=== PATIENT | male | born 1960 | race Caucasian/White ===

== ENCOUNTER 2019-09-10 19:12 | Inpatient (IN) | payer BC ==
[2019-09-10] MEDS ORDERED: ONDANSETRON 4 MG/2 ML VIAL IVP STA (19:48)
[2019-09-10] MEDS ORDERED: SODIUM CHLORIDE 0.9% 1,000 ML IV ONE (19:48)
[2019-09-10] MEDS ORDERED: HYDROmorphone 1 MG/ML 1 ML SYRINGE IVP STA (19:48)
[2019-09-10 20:40] LABS: Basophils % (A) 0 %; Eosinophils # (A) 0.1 k/uL (0-0.7); Eosinophils % (A) 1 %; HCT 46.7 % (39.0-53.0); HGB 16.3 gm/dL (13.0-17.5); Lymphocytes # (A) 0.8 k/uL (1.0-4.8); Lymphocytes % (A) 6 %; MCH 29.4 pg (25.0-35.0); MCHC 34.9 g/dL (31.0-37.0); MCV 84.1 fL (80.0-100.0); Mean Platelet Volume 7.5; Monocytes # (A) 0.7 k/uL (0-1.0); Monocytes % (A) 5 %; Neutrophils # (A) 11.9 k/uL (1.3-7.7); Neutrophils % (A) 87 %; Platelet Count 278 k/uL (150-450); RBC 5.56 m/uL (4.30-5.90); RDW 12.9 % (11.5-15.5); WBC 13.6 k/uL (3.8-10.6)
[2019-09-10 20:49] LABS: ALT 24 U/L (4-49); AST 35 U/L (17-59); African American GFR (CKD) >90 (>60 ml/min/1.73 sqM); Albumin 4.6 g/dL (3.5-5.0); Alkaline Phosphatase 83 U/L (38-126); Amylase 37 U/L (30-110); Anion Gap 10 mmol/L; Blood Urea Nitrogen 21 mg/dL (9-20); Calcium 10.1 mg/dL (8.4-10.2); Carbon Dioxide 23 mmol/L (22-30); Chloride 104 mmol/L (98-107); Glucose 104 mg/dL (74-99); Non-African American GFR(CKD) >90 (>60 ml/min/1.73 sqM); Potassium 4.2 mmol/L (3.5-5.1); Sodium 137 mmol/L (137-145); Total Bilirubin 0.9 mg/dL (0.2-1.3); Total Protein 7.4 g/dL (6.3-8.2)
--- NOTE | 2019-09-10 20:51 | ED ---
Abdominal Pain HPI - General Chief Complaint: Abdominal Pain Stated Complaint: Abd pain Time Seen by Provider: 09/10/19 19:28 Source: patient Mode of arrival: ambulatory Limitations: no limitations - History of Present Illness Initial Comments: 59-year-old male patient presents to the emergency department today for evaluation of abdominal pain and vomiting. Patient states that 2 days ago he started with some right-sided abdominal pain. Patient states his pain gradually worsened and started to encompasses all abdomen. Patient states that he is now unable to tolerate any food or fluids. States whenever he eats or drinks he had a vomiting episode. Patient states that his pain is still mostly in the right lower quadrant. He denies any radiation of the pain through to his back. Denies any hematuria, dysuria, urinary frequency, urinary urgency. Denies any constipation or diarrhea. States he did have a normal bowel movement today. Denies fevers or chills. States he has had hernia repair to the abdomen but no other surgeries. Does have a history of coronary artery disease with 6 stents. States that he feels that his breathing is becoming more shallow but denies any significant shortness of breath. Patient denies any recent rash, chest pain, numbness, tingling, dizziness, weakness, headache, visual changes, or any other complaints. - Related Data Home Medications Medication Instructions Recorded Confirmed Aspirin EC [Ecotrin Low Dose] 162 mg PO DAILY 09/10/19 09/10/19 Clopidogrel [Plavix] 75 mg PO DAILY 09/10/19 09/10/19 Levothyroxine Sodium [Synthroid] 50 mcg PO DAILY 09/10/19 09/10/19 Lisinopril [Zestril] 5 mg PO DAILY 09/10/19 09/10/19 Magnesium Oxide [Mag-Ox] 250 mg PO DAILY 09/10/19 09/10/19 Metoprolol Succinate [Toprol XL] 12.5 mg PO DAILY 09/10/19 09/10/19 Omeprazole 20 mg PO DAILY 09/10/19 09/10/19 Rosuvastatin Calcium [Crestor] 40 mg PO DAILY 09/10/19 09/10/19 Ubidecarenone [Co Q-10] 200 mg PO DAILY 09/10/19 09/10/19 Allergies Allergy/AdvReac Type Severity Reaction Status Date / Time No Known Allergies Allergy Verified 09/10/19 22:54 Review of Systems ROS Statement: Those systems with pertinent positive or pertinent negative responses have been documented in the HPI. ROS Other: All systems not noted in ROS Statement are negative. Past Medical History Past Medical History: Cancer, Myocardial Infarction ([place]) History of Any Multi-Drug Resistant Organisms: None Reported Past Surgical History: Heart Catheterization With Stent, Hernia Repair Past Psychological History: No Psychological Hx Reported Smoking Status: Never smoker Past Alcohol Use History: Occasional Past Drug Use History: None Reported General Exam Limitations: no limitations General appearance: alert, in no apparent distress, other (This is a well- developed, well-nourished adult male patient in no acute distress. Vital signs upon presentation are temperature 98.2F 1 pulse 126, respirations 18, blood pressure 118/73, pulse ox 100% on room air.) Eye exam: Present: normal appearance, PERRL, EOMI. Absent: scleral icterus, conjunctival injection, periorbital swelling ENT exam: Present: normal exam, normal oropharynx, mucous membranes moist Respiratory exam: Present: normal lung sounds bilaterally. Absent: respiratory distress, wheezes, rales, rhonchi, stridor Cardiovascular Exam: Present: regular rate, normal rhythm, normal heart sounds. Absent: systolic murmur, diastolic murmur, rubs, gallop, clicks GI/Abdominal exam: Present: soft, tenderness (Generalized tenderness, mostly over the right lower quadrant), guarding, normal bowel sounds. Absent: distended, rebound, rigid Neurological exam: Present: alert, oriented X3, CN II-XII intact Psychiatric exam: Present: normal affect, normal mood Skin exam: Present: warm, dry, intact, normal color. Absent: rash Course Vital Signs 09/10/19 09/10/19 09/10/19 19:13 20:26 22:24 Temperature 98.2 F Pulse Rate 126 H 92 93 Respiratory 18 18 18 Rate Blood Pressure 118/73 142/87 142/94 O2 Sat by Pulse 100 97 96 Oximetry 09/10/19 23:13 Temperature Pulse Rate 85 Respiratory 18 Rate Blood Pressure 129/61 O2 Sat by Pulse 97 Oximetry Medical Decision Making - Medical Decision Making 59-year-old male patient presents to the emergency department today for evaluation of abdominal pain and vomiting. Physical examination did reveal right lower quadrant and generalized abdominal tenderness. There is some mild guarding. Labs reviewed and did reveal mildly elevated white blood cell count at 13.6. Was obtained and did show a small bowel obstruction with transition point and stricture at the terminal ileum. I did discuss findings and results with the patient. He will be admitted to the hospital for further evaluation by general surgery. He has not had any vomiting so we will withhold NG tube at this time. He is advised if he is vomiting persists he will have to have it placed. He verbalizes understanding and agrees with this plan. - Lab Data Result diagrams: 09/10/19 20:17 09/10/19 20:17 Lab Results 09/10/19 09/10/19 09/10/19 Range/Units 20:17 20:17 20:17 WBC 13.6 H (3.8-10.6) k/uL RBC 5.56 (4.30-5.90) m/uL Hgb 16.3 (13.0-17.5) gm/dL Hct 46.7 (39.0-53.0) % MCV 84.1 (80.0-100.0) fL MCH 29.4 (25.0-35.0) pg MCHC 34.9 (31.0-37.0) g/dL RDW 12.9 (11.5-15.5) % Plt Count 278 (150-450) k/uL Neutrophils % 87 % Lymphocytes % 6 % Monocytes % 5 % Eosinophils % 1 % Basophils % 0 % Neutrophils # 11.9 H (1.3-7.7) k/uL Lymphocytes # 0.8 L (1.0-4.8) k/uL Monocytes # 0.7 (0-1.0) k/uL Eosinophils # 0.1 (0-0.7) k/uL Basophils # 0.0 (0-0.2) k/uL Sodium 137 (137-145) mmol/L Potassium 4.2 (3.5-5.1) mmol/L Chloride 104 (98-107) mmol/L Carbon Dioxide 23 (22-30) mmol/L Anion Gap 10 mmol/L BUN 21 H (9-20) mg/dL Creatinine 0.85 (0.66-1.25) mg/dL Est GFR (CKD-EPI)AfAm >90 (>60 ml/min/1.73 sqM) Est GFR (CKD-EPI)NonAf >90 (>60 ml/min/1.73 sqM) Glucose 104 H (74-99) mg/dL Plasma Lactic Acid [place] 1.2 (0.7-2.0) mmol/L Calcium 10.1 (8.4-10.2) mg/dL Total Bilirubin 0.9 (0.2-1.3) mg/dL AST 35 (17-59) U/L ALT 24 (4-49) U/L Alkaline Phosphatase 83 (38-126) U/L Troponin I (0.000-0.034) ng/mL Total Protein 7.4 (6.3-8.2) g/dL Albumin 4.6 (3.5-5.0) g/dL Amylase 37 (30-110) U/L Lipase 75 (23-300) U/L Urine Color Urine Appearance (Clear) Urine pH (5.0-8.0) Ur Specific [place] (1.001-1.035) Urine Protein (Negative) Urine Glucose (UA) (Negative) Urine Ketones (Negative) Urine Blood (Negative) Urine Nitrite (Negative) Urine Bilirubin (Negative) Urine Urobilinogen (<2.0) mg/dL Ur Leukocyte Esterase (Negative) Urine RBC (0-5) /hpf Urine WBC (0-5) /hpf Ur Squamous Epith Cells (0-4) /hpf Urine Mucus (None) /hpf 09/10/19 09/10/19 Range/Units 20:17 21:36 WBC (3.8-10.6) k/uL RBC (4.30-5.90) m/uL Hgb (13.0-17.5) gm/dL Hct (39.0-53.0) % MCV (80.0-100.0) fL MCH (25.0-35.0) pg MCHC (31.0-37.0) g/dL RDW (11.5-15.5) % Plt Count (150-450) k/uL Neutrophils % % Lymphocytes % % Monocytes % % Eosinophils % % Basophils % % Neutrophils # (1.3-7.7) k/uL Lymphocytes # (1.0-4.8) k/uL Monocytes # (0-1.0) k/uL Eosinophils # (0-0.7) k/uL Basophils # (0-0.2) k/uL Sodium (137-145) mmol/L Potassium (3.5-5.1) mmol/L Chloride (98-107) mmol/L Carbon Dioxide (22-30) mmol/L Anion Gap mmol/L BUN (9-20) mg/dL Creatinine (0.66-1.25) mg/dL Est GFR (CKD-EPI)AfAm (>60 ml/min/1.73 sqM) Est GFR (CKD-EPI)NonAf (>60 ml/min/1.73 sqM) Glucose (74-99) mg/dL Plasma Lactic Acid [place] (0.7-2.0) mmol/L Calcium (8.4-10.2) mg/dL Total Bilirubin (0.2-1.3) mg/dL AST (17-59) U/L ALT (4-49) U/L Alkaline Phosphatase (38-126) U/L Troponin I <0.012 (0.000-0.034) ng/mL Total Protein (6.3-8.2) g/dL Albumin (3.5-5.0) g/dL Amylase (30-110) U/L Lipase (23-300) U/L Urine Color Yellow Urine Appearance Clear (Clear) Urine pH 6.0 (5.0-8.0) Ur Specific [place] >1.050 H (1.001-1.035) Urine Protein 1+ H (Negative) Urine Glucose (UA) Negative (Negative) Urine Ketones 2+ H (Negative) Urine Blood Negative (Negative) Urine Nitrite Negative (Negative) Urine Bilirubin Negative (Negative) Urine Urobilinogen 2.0 (<2.0) mg/dL Ur Leukocyte Esterase Negative (Negative) Urine RBC 3 (0-5) /hpf Urine WBC 2 (0-5) /hpf Ur Squamous Epith Cells <1 (0-4) /hpf Urine Mucus Few H (None) /hpf - EKG Data -: EKG Interpreted by Me EKG Comments: EKG obtained at 2030 shows normal sinus rhythm with a ventricular 91, AK interval 138, QRS Duration 84, QT 382, QTc 469. No evidence of ST elevation or depression - Radiology Data Radiology results: report reviewed, image reviewed CT abdomen and pelvis is obtained impression by Dr. Malcolm shows mechanical small bowel instruction with stricture and transition point seen in the proximal ileum. No mass seen. Normal appendix. Disposition Clinical Impression: Small bowel obstruction Disposition: ADMITTED IP TO THIS [facility] Condition: Serious Decision to Admit Reason: Admit from EC Decision Date: 09/10/19 Decision Time: 22:21
--- NOTE | 2019-09-10 21:18 | CT ---
EXAMINATION TYPE: CT abdomen pelvis w con DATE OF EXAM: 09/10/2019 COMPARISON: None HISTORY: Abdominal pain and vomiting. CT DLP: 1762.5 mGycm Automated exposure control for dose reduction was used. CONTRAST: Performed with IV Contrast, patient injected with 100ml mL of Isovue 300. There is mild subsegmental atelectasis at the right lung base. There is no pleural effusion. Heart si ze is normal. Liver spleen pancreas gallbladder appear normal. Bile ducts are not dilated. Stomach is intact. There is no adrenal mass. Kidneys show satisfactory contrast opacification. There is no hydronephrosi s. Ureters are not dilated. Bladder distends smoothly. There is no inguinal hernia. There are numerous sigmoid diverticula. There is no sign of diverticulitis. Appendix appears normal. There are multiple dilated fluid-filled loops of small bowel in the mid abdomen. Terminal ileum is no t dilated. Small bowel is dilated up to almost 4 cm. There is transition point seen in the proximal ileum with an apparent severe stricture of the ileum. This is best seen on coronal image 49. Lumbar spine shows normal alignment and spacing of the vertebra. Posterior elements are intact. Bony pelvis is intact. IMPRESSION: Mechanical small bowel obstruction with stricture and transition point seen in the proximal ileum. No mass seen. Normal appendix.
[2019-09-10 22:14] LABS: Appearance,Urine Clear (Clear); Bilirubin,Urine Negative (Negative); Blood,Urine Negative (Negative); Color,Urine Yellow; Glucose,Urine (UA) Negative (Negative); Ketones,Urine 2+ (Negative); Leukocyte Esterase,Urine Negative (Negative); Mucus,Urine Few /hpf; Nitrite,Urine Negative (Negative); Protein,Urine 1+ (Negative); RBC,Urine 3 /hpf (0-5); Squamous Epithelial Cell,Urine <1 /hpf (0-4); WBC,Urine 2 /hpf (0-5)
[2019-09-10] MEDS ORDERED: NALOXONE 0.4 MG/ML 1 ML VIAL IV PRN (22:19)
[2019-09-10 22:22] LABS: Specific Gravity,Urine >1.050 (1.001-1.035)
[2019-09-11] MEDS: HYDROmorphone 1 MG/ML 1 ML SYRINGE IVP PRN ×6 (00:05→16:04)
[2019-09-11] MEDS: SODIUM CHLORIDE 0.9% 1,000 ML IV SCH ×2 (00:05→09:07)
[2019-09-11] MEDS: ONDANSETRON 4 MG/2 ML VIAL IVP PRN ×4 (03:33→20:10)
[2019-09-11] MEDS ORDERED: LEVOTHYROXINE IVP 100 MCG/5 ML VIAL IV SCH (11:00)
[2019-09-11] MEDS: HYDROmorphone 0.5 MG/0.5 ML SYRINGE IVP PRN ×3 (11:37→23:17)
--- NOTE | 2019-09-11 12:14 | P.GSCN ---
History of Present Illness Consult date: 09/11/19 Reason for Consult: Small bowel obstruction History of present illness: This is a 59-year-old male who has a four-day history of nausea vomiting and abdominal pain. Patient was admitted through the emergency room last night. He said have evidence of a small bowel obstruction with a stricture of the proximal ileum. Patient's had complaints of abdominal pain and nausea since admission. He actually threw up in the room while I was interviewing him. The Past Medical History Past Medical History: Cancer, Myocardial Infarction ([place]) Additional Past Medical History / Comment(s): hodgkins (chemo and radiation in 93) Last Myocardial Infarction Date:: 2010 History of Any Multi-Drug Resistant Organisms: None Reported Past Surgical History: Heart Catheterization With Stent, Hernia Repair Additional Past Surgical History / Comment(s): broke back in Past Anesthesia/Blood Transfusion Reactions: No Reported Reaction Date of Last Stent Placement:: 04/28/19 Past Psychological History: No Psychological Hx Reported Smoking Status: Never smoker Past Alcohol Use History: Occasional Past Drug Use History: None Reported - Past Family History Mother Additional Family Medical History / Comment(s): dementia, mass in chest Father Additional Family Medical History / Comment(s): multiple myeloma Medications and Allergies Home Medications Medication Instructions Recorded Confirmed Type Aspirin EC [Ecotrin Low Dose] 162 mg PO DAILY 09/10/19 09/10/19 History Clopidogrel [Plavix] 75 mg PO DAILY 09/10/19 09/10/19 History Levothyroxine Sodium [Synthroid] 50 mcg PO DAILY 09/10/19 09/10/19 History Lisinopril [Zestril] 5 mg PO DAILY 09/10/19 09/10/19 History Magnesium Oxide [Mag-Ox] 250 mg PO DAILY 09/10/19 09/10/19 History Metoprolol Succinate [Toprol XL] 12.5 mg PO DAILY 09/10/19 09/10/19 History Omeprazole 20 mg PO DAILY 09/10/19 09/10/19 History Rosuvastatin Calcium [Crestor] 40 mg PO DAILY 09/10/19 09/10/19 History Ubidecarenone [Co Q-10] 200 mg PO DAILY 09/10/19 09/10/19 History Allergies Allergy/AdvReac Type Severity Reaction Status Date / Time No Known Allergies Allergy Verified 09/10/19 22:54 Surgical - Exam Vital Signs Temp Pulse Resp BP Pulse Ox 98.2 F 126 H 18 118/73 100 09/10/19 19:13 09/10/19 19:13 09/10/19 19:13 09/10/19 19:13 09/10/19 19:13 - General well developed, moderate distress - Eyes PERRL - ENT normal pinna - Neck no masses - Respiratory normal expansion - Cardiovascular Rhythm: regular - Abdomen Abdomen soft. There is mild tenderness throughout. The abdomen appears to be distended. There is no rebound or guarding. Abdomen: soft Results - Labs 09/10/19 20:17 09/10/19 20:17 Abnormal Lab Results - Last 24 Hours (Table) 09/10/19 09/10/19 09/10/19 Range/Units 20:17 20:17 21:36 WBC 13.6 H (3.8-10.6) k/uL Neutrophils # 11.9 H (1.3-7.7) k/uL Lymphocytes # 0.8 L (1.0-4.8) k/uL BUN 21 H (9-20) mg/dL Glucose 104 H (74-99) mg/dL Ur Specific [place] >1.050 H (1.001-1.035) Urine Protein 1+ H (Negative) Urine Ketones 2+ H (Negative) Urine Mucus Few H (None) /hpf Diabetes panel 09/10/19 Range/Units 20:17 Sodium 137 (137-145) mmol/L Potassium 4.2 (3.5-5.1) mmol/L Chloride 104 (98-107) mmol/L Carbon Dioxide 23 (22-30) mmol/L BUN 21 H (9-20) mg/dL Creatinine 0.85 (0.66-1.25) mg/dL Glucose 104 H (74-99) mg/dL Calcium 10.1 (8.4-10.2) mg/dL AST 35 (17-59) U/L ALT 24 (4-49) U/L Alkaline Phosphatase 83 (38-126) U/L Total Protein 7.4 (6.3-8.2) g/dL Albumin 4.6 (3.5-5.0) g/dL Calcium panel 09/10/19 Range/Units 20:17 Calcium 10.1 (8.4-10.2) mg/dL Albumin 4.6 (3.5-5.0) g/dL Pituitary panel 09/10/19 Range/Units 20:17 Sodium 137 (137-145) mmol/L Potassium 4.2 (3.5-5.1) mmol/L Chloride 104 (98-107) mmol/L Carbon Dioxide 23 (22-30) mmol/L BUN 21 H (9-20) mg/dL Creatinine 0.85 (0.66-1.25) mg/dL Glucose 104 H (74-99) mg/dL Calcium 10.1 (8.4-10.2) mg/dL Adrenal panel 09/10/19 Range/Units 20:17 Sodium 137 (137-145) mmol/L Potassium 4.2 (3.5-5.1) mmol/L Chloride 104 (98-107) mmol/L Carbon Dioxide 23 (22-30) mmol/L BUN 21 H (9-20) mg/dL Creatinine 0.85 (0.66-1.25) mg/dL Glucose 104 H (74-99) mg/dL Calcium 10.1 (8.4-10.2) mg/dL Total Bilirubin 0.9 (0.2-1.3) mg/dL AST 35 (17-59) U/L ALT 24 (4-49) U/L Alkaline Phosphatase 83 (38-126) U/L Total Protein 7.4 (6.3-8.2) g/dL Albumin 4.6 (3.5-5.0) g/dL Assessment and Plan Assessment: Small bowel obstruction related to small bowel stricture. Patient will undergo exploratory laparotomy with possible small bowel resection in the a.m. We'll continue nothing by mouth with NG tube decompression.
[2019-09-11] MEDS: ENOXAPARIN 40 MG/0.4 ML SYRINGE SQ SCH (13:24)
[2019-09-11] MEDS: PIPERACILLIN-TAZOBACTAM 3.375 GM in SODIUM CHLORIDE 0.9% 100 ML IVPB SCH ×2 (13:27→21:10)
--- NOTE | 2019-09-11 20:51 | P.HPIM ---
History of Present Illness H&P Date: 09/11/19 Chief Complaint: Abdominal pain History of presenting complaint: This is a 59-year-old patient of Dr. Ramon Duran. Chronic stable medical conditions include coronary artery disease with stent, total of 6 with the last one being in April 2019, hyperlipidemia, hypothyroid, hypertension. Patient has a prior history of Hodgkin's disease that is under control. 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 Also started having vomiting. Some fever or chills. Patient progressively got worse. Presents to the ER.. Computed tomography scan of the abdomen showed mechanical small bowel obstruction with a stricture transition point seen in proximal ileum. NG tube was placed. Admitted to the hospital. General surgery was consulted. Review of systems: GEN.: Tired EYES: None HEENT: None NECK: None RESPIRATORY: None CARDIOVASCULAR: None GASTROINTESTINAL: Has above GENITOURINARY: None MUSCULOSKELETAL: None LYMPHATICS: None HEMATOLOGICAL: None PSYCHIATRY: None NEUROLOGICAL: None Past medical history to include: Coronary artery disease with 6 stents, last one being in April 2019, at [facility], essential hypertension, hyperlipidemia, hypothyroid Social history: Doesn't smoke, alcohol occasionally, , employed Physical examination: VITAL SIGNS: 98.2, 126, 18, 1180 73, percent room air GENERAL: 32.1,-BMI, laying in bed, tired appearing. EYES: Pupils equal. Conjunctiva normal. HEENT: External appearance of nose and ears normal, oral cavity dry, NG tube in place to suction. NECK: JVD not raised; masses not palpable. HEART: First and second heart sounds are normal; no edema. LUNGS: Respiratory rate normal; clear to auscultation. ABDOMEN: Soft, tender, slightly distended, no guarding or rigidity, liver spleen not palpable, no masses palpable. PSYCH: Alert and oriented x3; mood and affect normal. NEUROLOGICAL: Cranial nerves grossly intact; no facial asymmetry, power and sensation grossly intact. LYMPHATICS: No lymph nodes palpable in the axilla and neck INVESTIGATIONS, reviewed in the clinical context: White count 3.6 hemoglobin 16.3 platelets 278 Potassium 4.2 bun 21 crit 0.85 Computed tomography scan abdomen-small bowel obstruction EKG tracing personally reviewed by me-sinus rhythm, subtle ST segment depression in inferior leads Assessment: -Acute small bowel obstruction with a defined point -Coronary artery disease with a prior history of stents 6, last being in April 2019 at [facility] -Essential hypertension -Hyperlipidemia -Hypothyroidism -Obesity BMI 32.12 Plan: General surgery was consulted. Other NG tube and suction. We'll give Lovenox for DVT prophylaxis. IV fluids. Antiplatelet agents were held. Cardiology is being consulted because of coronary stent placed in April 2019. Care was discussed with the patient. Past Medical History Past Medical History: Cancer, Myocardial Infarction ([place]) Additional Past Medical History / Comment(s): hodgkins (chemo and radiation in ) Last Myocardial Infarction Date:: 2010 History of Any Multi-Drug Resistant Organisms: None Reported Past Surgical History: Heart Catheterization With Stent, Hernia Repair Additional Past Surgical History / Comment(s): broke back in Past Anesthesia/Blood Transfusion Reactions: No Reported Reaction Date of Last Stent Placement:: 04/28/19 Past Psychological History: No Psychological Hx Reported Smoking Status: Never smoker Past Alcohol Use History: Occasional Past Drug Use History: None Reported - Past Family History Mother Additional Family Medical History / Comment(s): dementia, mass in chest Father Additional Family Medical History / Comment(s): multiple myeloma Medications and Allergies Home Medications Medication Instructions Recorded Confirmed Type Aspirin EC [Ecotrin Low Dose] 162 mg PO DAILY 09/10/19 09/10/19 History Clopidogrel [Plavix] 75 mg PO DAILY 09/10/19 09/10/19 History Levothyroxine Sodium [Synthroid] 50 mcg PO DAILY 09/10/19 09/10/19 History Lisinopril [Zestril] 5 mg PO DAILY 09/10/19 09/10/19 History Magnesium Oxide [Mag-Ox] 250 mg PO DAILY 09/10/19 09/10/19 History Metoprolol Succinate [Toprol XL] 12.5 mg PO DAILY 09/10/19 09/10/19 History Omeprazole 20 mg PO DAILY 09/10/19 09/10/19 History Rosuvastatin Calcium [Crestor] 40 mg PO DAILY 09/10/19 09/10/19 History Ubidecarenone [Co Q-10] 200 mg PO DAILY 09/10/19 09/10/19 History Allergies Allergy/AdvReac Type Severity Reaction Status Date / Time No Known Allergies Allergy Verified 09/10/19 22:54 Physical Exam Vitals: Vital Signs Temp Pulse Pulse Resp BP BP Pulse Ox 09/11/19 07:00 98.7 F 99 12 117/69 96 09/11/19 03:20 98.9 F 86 16 120/67 97 09/10/19 23:30 98.4 F 93 16 136/81 97 09/10/19 23:13 85 18 129/61 97 09/10/19 22:24 93 18 142/94 96 09/10/19 20:26 92 18 142/87 97 09/10/19 19:13 98.2 F 126 H 18 118/73 100 Intake and Output 09/10/19 09/11/19 09/11/19 22:59 06:59 14:59 Intake Total 400 Balance 400 Intake: Intake, IV Titration 400 Amount Sodium Chloride 0.9% 1, 400 000 ml @ 80 mls/hr IV . [id number] [facility] Rx#:[id number] Other: Voiding Method Toilet Toilet # Voids 1 Weight 104.326 kg 104.326 kg Results CBC & Chem 7: 09/10/19 20:17 09/10/19 20:17 Labs: Abnormal Lab Results - Last 24 Hours (Table) 09/10/19 09/10/19 09/10/19 Range/Units 20:17 20:17 21:36 WBC 13.6 H (3.8-10.6) k/uL Neutrophils # 11.9 H (1.3-7.7) k/uL Lymphocytes # 0.8 L (1.0-4.8) k/uL BUN 21 H (9-20) mg/dL Glucose 104 H (74-99) mg/dL Ur Specific [place] >1.050 H (1.001-1.035) Urine Protein 1+ H (Negative) Urine Ketones 2+ H (Negative) Urine Mucus Few H (None) /hpf Thrombosis Risk Factor Assmnt - Choose All That Apply Any of the Below Risk Factors Present?: Yes Each Factor Represents 1 point: Obesity (BMI >25) Other Risk Factors: Yes Each Risk Factor Represents 2 Points: Age 61-74 years Other congenital or acquired thrombophilia - If yes, enter type in comment: No Thrombosis Risk Factor Assessment Total Risk Factor Score: 3 Thrombosis Risk Factor Assessment Level: Moderate Risk
[2019-09-12] MEDS: ONDANSETRON 4 MG/2 ML VIAL IVP PRN ×4 (01:10→22:36)
[2019-09-12] MEDS: SODIUM CHLORIDE 0.9% 1,000 ML IV SCH ×5 (01:28→22:46)
[2019-09-12] MEDS: HYDROmorphone 0.5 MG/0.5 ML SYRINGE IVP PRN ×6 (03:37→22:36)
[2019-09-12] MEDS: PIPERACILLIN-TAZOBACTAM 3.375 GM in SODIUM CHLORIDE 0.9% 100 ML IVPB SCH ×3 (05:55→22:44)
[2019-09-12] MEDS ORDERED: GLYCOPYRROLATE 0.2 MG/ML 2 ML VIAL ONE (08:13)
[2019-09-12] MEDS ORDERED: MIDAZOLAM 2 MG/2 ML VIAL ONE (08:13)
[2019-09-12] MEDS ORDERED: PHENYLEPHRINE-0.9% NACL SYG 1 MG/10 ML SYRINGE ONE (08:13)
[2019-09-12] MEDS ORDERED: DEXAMETHASONE SOD PHOS (MDV) 100 MG/10 ML VIAL ONE (08:13)
[2019-09-12] MEDS ORDERED: SUCCINYLCHOLINE CHLORIDE 100 MG/5 ML SYR IV ONE (08:13)
[2019-09-12] MEDS ORDERED: NEOSTIGMINE 1 MG/ML 10 ML VIAL ONE (08:13)
[2019-09-12] MEDS ORDERED: METOPROLOL TARTRATE 5 MG/5 ML VIAL IVP ONE (08:13)
[2019-09-12] MEDS ORDERED: PROPOFOL 10 MG/ML 20 ML VIAL IV ONE (08:13)
[2019-09-12] MEDS ORDERED: ONDANSETRON 4 MG/2 ML VIAL ONE (08:13)
[2019-09-12] MEDS ORDERED: fentaNYL (PF) 50 MCG/ML 2 ML AMP ONE (08:13)
[2019-09-12] MEDS ORDERED: ROCURONIUM BROMIDE 10 MG/ML 10 ML VIAL IV ONE (08:13)
[2019-09-12] MEDS ORDERED: IV FLUID CONTINUATION 300 ML IV ONE (08:36)
[2019-09-12] MEDS ORDERED: LACTATED RINGERS 1,000 ML IV ONE (08:37)
--- NOTE | 2019-09-12 08:52 | P.OP ---
Date of Procedure: 09/12/19 Preoperative Diagnosis: Small bowel obstruction Postoperative Diagnosis: Small bowel obstruction secondary to adhesive band causing closed loop obstruction Procedure(s) Performed: Exploratory laparotomy Lysis of adhesions Anesthesia: JENY Surgeon: Cresencio Coleman Estimated Blood Loss (ml): 10 Pathology: none sent Condition: stable Disposition: PACU Description of Procedure: A she was placed on the operative table in supine position. He received general anesthesia. His abdomen was prepped and draped usual fashion. The abdomen was entered through a midline incision. The left cautery the fascia was divided. The pyloric orifice wound. There is small bowel was also dilated small bowel was run down and in the level of the lower abdomen there was a closed loop obstruction found from an adhesive band. The adhesive band was lysed using figure dissection and the small bowel was freed. The small bowel appeared initially ischemic however over time the bowel pinked up and appeared to be fully viable. This point small bowel is run thoroughly from the ligament of Treitz to the ileocecal valve there is no other obstruction seen. The abdomen was irrigated is no bleeding seen. The fascia is closed loop #1 PDS suture. Skin was all stapled. Patient top she will was sent to recovery room stable condition.
[2019-09-12] MEDS ORDERED: HYDROmorphone 1 MG/ML 1 ML SYRINGE IVP ONE ×4 (09:13→09:31)
[2019-09-12] MEDS ORDERED: SODIUM CHLORIDE 0.9% 1,000 ML IV ONE (09:41)
[2019-09-12] MEDS: ENOXAPARIN 40 MG/0.4 ML SYRINGE SQ SCH ×2 (09:49→22:46)
[2019-09-12] MEDS ORDERED: BENZOCAINE SPRAY 1 CAN MUCOUS MEM PRN (10:44)
[2019-09-12] MEDS: METOCLOPRAMIDE 5 MG/ML 2 ML VIAL IVP SCH ×2 (12:39→18:09)
--- NOTE | 2019-09-12 16:32 | CONS ---
CONSULTATION DATE OF SERVICE: September 12, 2019. REASON FOR THE CONSULTATION: Coronary artery disease. HISTORY OF PRESENT ILLNESS: This is a pleasant 59-year-old gentleman with a past medical history significant for coronary artery disease and prior coronary artery stenting performed at [facility] as well as a [facility], hypertension, dyslipidemia, presented to the emergency room complaining of abdominal discomfort associated with nausea and vomiting. The symptoms have been going for 2 days. The discomfort was mainly on the right side of the abdomen. No chest pain or chest discomfort, shortness of breath, or any dizziness, or syncope. The patient was diagnosed with small-bowel obstructions and he underwent exploratory laparotomy and release of adhesions. No resection was performed at that point. We consulted to see the patient just because of his prior medical history. 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 He is asymptomatic from a cardiovascular standpoint of view. Beside that, he is hemodynamically stable besides being in mild sinus tachycardia. He is on maximized medical treatment before he presented to the hospital including dual anti-platelet therapy along with beta filipe as well as SAI inhibitor. All his medications are on hold at this point because he does have an NG tube and he is NPO. PAST MEDICAL HISTORY: Includes: 1. Coronary artery disease and prior stenting with unknown details. 2. Hypertension. 3. Dyslipidemia. 4. History of Hodgkin's lymphoma. SOCIAL HISTORY: He does not smoke or drink alcohol. FAMILY HISTORY: Family history is not relevant. MEDICATIONS: Currently, the patient is not on any p.o. medications. PHYSICAL EXAMINATION: GENERAL APPEARANCE he does not look in any pain or distress. VITAL SIGNS: Vital showed heart rate is 100 beats per minute, pressure is 125/77, respiratory rate is 20. CARDIOVASCULAR examination shows regular rate and rhythm. RESPIRATORY examination showed clear breathing sounds bilaterally. LABORATORY DATA: WBC 13.6, hemoglobin is 16.3, platelet count is 278. Sodium is 137, potassium 4.2, and GFR is more than 19. ASSESSMENT: 1. Small-bowel obstruction secondary to adhesions. 2. Coronary artery disease and prior stenting, seems to be stable. 3. Hypertension. 4. Dyslipidemia. PLAN: 1. The patient currently is n.p.o. 2. Start the patient back on his metoprolol as soon as possible to slow the heart rate. 3. Resume his anti-platelet once he is stable from the GI standpoint of view. 4. Follow up with the patient. MMODL / IJN: [id number] /
--- NOTE | 2019-09-12 21:04 | P.PN ---
Progress Note - Text Progress Note Date: 09/12/19 Chief Complaint: Abdominal pain Interval history: This is a 59-year-old patient of Dr. Ramon Duran. Chronic stable medical conditions include coronary artery disease with stent, total of 6 with the last one being in April 2019, hyperlipidemia, hypothyroid, hypertension. Patient has a prior history of Hodgkin's disease that is under control. 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 Also started having vomiting. Some fever or chills. Patient progressively got worse. Presents to the ER.. Computed tomography scan of the abdomen showed mechanical small bowel obstruction with a stricture transition point seen in proximal ileum. NG tube was placed. Admitted to the hospital. General surgery was consulted. Today-. Postop-Adhesive band was found to be causing a closed loop obstruction. Some abdominal pain present. No nausea vomiting. Review of systems: Was done for constitutional, cardiovascular, GI, pulmonary. relevant finding as above Active Medications Benzocaine (Hurricaine [place]) 1 spray MUCOUS MEM QID PRN PRN Reason: Mouth Irritation Enoxaparin Sodium (Lovenox) 40 mg SQ DAILY@2100 [facility] Hydromorphone HCl (Dilaudid) 1 mg IVP Q3HR PRN PRN Reason: Severe Pain Last Admin: 09/11/19 16:04 Dose: 1 mg Documented by: Hydromorphone HCl (Dilaudid) 0.5 mg IVP Q3HR PRN PRN Reason: Breakthrough Pain Last Admin: 09/12/19 18:09 Dose: 0.5 mg Documented by: Piperacillin Sod/Tazobactam (Sod 3.375 gm/ Sodium Chloride) 100 mls @ 25 mls/hr IVPB Q8H [facility] Last Admin: 09/12/19 12:50 Dose: 25 mls/hr Documented by: Sodium Chloride (Saline 0.9%) 1,000 mls @ 150 mls/hr IV .Q6H40M [facility] Last Admin: 09/12/19 18:09 Dose: 150 mls/hr Documented by: Levothyroxine Sodium (Synthroid Ivp) 50 mcg IV Q48H [facility] Last Admin: 09/11/19 13:24 Dose: 50 mcg Documented by: Melatonin (Melatonin) 2 mg PO HS [facility] Metoclopramide HCl (Reglan) 10 mg IVP Q6HR [facility] Last Admin: 09/12/19 18:09 Dose: 10 mg Documented by: Naloxone HCl (Narcan) 0.2 mg IV Q2M PRN PRN Reason: Opioid Reversal Ondansetron HCl (Zofran) 4 mg IVP Q4HR PRN PRN Reason: Nausea And Vomiting Last Admin: 09/12/19 15:17 Dose: 4 mg Documented by: Physical examination: VITAL SIGNS: 98.2, 106, 12, 132/79, 97% room air GENERAL: Laying in bed, awake EYES: Pupils equal. Conjunctiva normal. HEENT: External appearance of nose and ears normal, oral cavity dry, NG tube in place to suction. NECK: JVD not raised; masses not palpable. HEART: First and second heart sounds are normal; no edema. LUNGS: Respiratory rate normal; clear to auscultation. ABDOMEN: Soft, tender, slightly distended, no guarding or rigidity, liver spleen not palpable, no masses palpable. PSYCH: Alert and oriented x3; mood and affect normal. INVESTIGATIONS, reviewed in the clinical context: White count 13.6 hemoglobin 16.3 platelets 278 Potassium 4.2 bun 21 crit 0.85 Computed tomography scan abdomen-small bowel obstruction EKG tracing personally reviewed by me-sinus rhythm, subtle ST segment depression in inferior leads Assessment: -Acute small bowel obstruction-status post removal of adhesive band causing her closed-loop obstruction -Coronary artery disease with a prior history of stents 6, last being in April 2019 at [facility] -Essential hypertension -Hyperlipidemia -Hypothyroidism -Obesity BMI 32.12 Plan: Postoperative laying comfortably. Continue current medication treatment plan. Discussed with patient.
[2019-09-12] MEDS: MELATONIN 1 MG TAB PO SCH (22:47)
[2019-09-13] MEDS: METOCLOPRAMIDE 5 MG/ML 2 ML VIAL IVP SCH ×5 (00:29→23:53)
[2019-09-13] MEDS: HYDROmorphone 1 MG/ML 1 ML SYRINGE IVP PRN ×7 (02:05→20:58)
[2019-09-13] MEDS: ONDANSETRON 4 MG/2 ML VIAL IVP PRN ×3 (02:06→22:40)
[2019-09-13] MEDS: SODIUM CHLORIDE 0.9% 1,000 ML IV SCH ×3 (05:20→16:38)
[2019-09-13] MEDS: PIPERACILLIN-TAZOBACTAM 3.375 GM in SODIUM CHLORIDE 0.9% 100 ML IVPB SCH ×3 (05:30→21:00)
[2019-09-13] MEDS: LEVOTHYROXINE 50 MCG TAB PO SCH (05:31)
[2019-09-13 06:28] LABS: Basophils % (A) 1 %; Eosinophils % (A) 1 %; HCT 41.7 % (39.0-53.0); HGB 13.9 gm/dL (13.0-17.5); Lymphocytes # (A) 0.6 k/uL (1.0-4.8); Lymphocytes % (A) 11 %; MCH 29.2 pg (25.0-35.0); MCHC 33.5 g/dL (31.0-37.0); MCV 87.2 fL (80.0-100.0); Mean Platelet Volume 7.6; Monocytes # (A) 0.6 k/uL (0-1.0); Monocytes % (A) 12 %; Neutrophils # (A) 3.8 k/uL (1.3-7.7); Neutrophils % (A) 72 %; Platelet Count 219 k/uL (150-450); RBC 4.78 m/uL (4.30-5.90); RDW 12.9 % (11.5-15.5); WBC 5.3 k/uL (3.8-10.6)
[2019-09-13 06:40] LABS: African American GFR (CKD) >90 (>60 ml/min/1.73 sqM); Anion Gap 7 mmol/L; Blood Urea Nitrogen 27 mg/dL (9-20); Calcium 8.2 mg/dL (8.4-10.2); Carbon Dioxide 26 mmol/L (22-30); Chloride 107 mmol/L (98-107); Glucose 109 mg/dL (74-99); Non-African American GFR(CKD) 90 (>60 ml/min/1.73 sqM); Potassium 3.9 mmol/L (3.5-5.1); Sodium 140 mmol/L (137-145)
[2019-09-13 13:15] VITALS: BMI 32.1
--- NOTE | 2019-09-13 14:04 | P.PN ---
Progress Note - Text Progress Note Date: 09/13/19 The patient's postoperative day 1 from exploratory laparotomy with lysis of adhesion for closed loop small bowel obstruction. The patient feels much better today. He's had some minimal flatus. On exam his vital signs show. His abdomen is soft. Incision site is clean dry tach. Patient will have his nasogastric tube removed today. We will remain on ice chips and sips of clears. We'll advance his diet tomorrow.
[2019-09-13] MEDS ORDERED: LISINOPRIL 5 MG TAB PO SCH (16:15)
[2019-09-13] MEDS ORDERED: ATORVASTATIN 80 MG TAB PO SCH (16:15)
[2019-09-13] MEDS ORDERED: METOPROLOL SUCCINATE (ER) 25 MG TAB.ER.24H PO SCH (16:15)
[2019-09-13] MEDS ORDERED: METOPROLOL TARTRATE 25 MG TAB PO STA (16:21)
--- NOTE | 2019-09-13 16:26 | P.PN ---
Subjective Progress Note Date: 09/13/19 This is a pleasant 59-year-old gentleman with known history of coronary artery disease, he states that he's had 6 stents in the past most recently was in April of last year at the [facility], history of hypertension, hyperlipidemia, presented to the hospital with symptoms of abdom inal discomfort and was found to have a small bowel obstruction for which the patient underwent surgery. He was seen and examined today, the NG tube has been removed. Patient still is not having any active bowel sounds. He is having a popsicle with occasional ice, otherwise he is still somewhat nothing by mouth. Patient is having some mild abdominal discomfort after just ambulating in the hallway, but overall he is doing well. His blood pressure is 150/80 with a heart rate currently in the 90s, 95% on 2 L of oxygen. His cardiac medications have not yet been resumed because the patient is still nothing by mouth. We will plan on resuming his cardiac medications including lisinopril, metoprolol, and statin from tomorrow if the patient is taking oral without any difficulty. Initially I was going to recommend IV metoprolol for today, however the nurse felt that the patient could likely take it orally and she will verify this with the surgeon. We will give him a one-time dose of 25 now. We will also confirm with the surgeon regarding timing of reinitiating the aspirin and Plavix. Objective - Vital Signs Vital signs: Vital Signs Temp 98.1 F 09/13/19 14:00 Pulse 88 09/13/19 14:00 Resp 17 09/13/19 14:00 BP 150/80 09/13/19 14:00 Pulse Ox 95 09/13/19 14:00 Intake & Output 09/12/19 09/13/19 09/13/19 18:59 06:59 18:59 Intake Total 1300 720 Output Total 120 500 Balance 1180 220 Weight 104.326 kg Intake: IV 1300 Oral 720 Output: Urine 100 500 Estimated Blood Loss 20 Other: Voiding Method Urinal Urinal # Voids 0 1 2 - Exam PHYSICAL EXAMINATION: GENERAL: The 59-year-old gentleman in no acute distress at the time of my examination HEENT: Head is atraumatic, normocephalic. Pupils equal, round. Sclera anicteric. Conjunctiva are clear. Mucous membranes of the mouth are moist. Neck is supple. There is no elevated jugular venous pressure. No carotid bruit is heard. HEART EXAMINATION: Heart S1, S2 normal. No murmur or gallop heard. CHEST EXAMINATION: Lungs are clear to auscultation and precussion. No chest wall tenderness is noted on palpation or with deep breathing. ABDOMEN: Soft, mild generalized tenderness .Faint Bowel sounds are heard. No organomegaly noted. EXTREMITIES: 2+ peripheral pulses with no evidence of peripheral edema and no calf tenderness noted, bilateral Venodyne's in place. NEUROLOGIC patient is awake, alert and oriented X3. . - Labs CBC & Chem 7: 09/13/19 05:57 09/13/19 05:57 Labs: Abnormal Lab Results - Last 24 Hours (Table) 09/13/19 09/13/19 Range/Units 05:57 05:57 Lymphocytes # 0.6 L (1.0-4.8) k/uL BUN 27 H (9-20) mg/dL Glucose 109 H (74-99) mg/dL Calcium 8.2 L (8.4-10.2) mg/dL Assessment and Plan Plan: Assessment and plan #1 acute small bowel obstruction, status post laboratory laparotomy with lysis of adhesion for closed-loop small bowel obstruction #2 known history of coronary artery disease with prior stent placements, most recent stent was performed in April of last year at [facility] #3 hypertension #4Hyperlipidemia Plan From cardiology's perspective, patient remains nothing by mouth today, his diet will be advanced tomorrow, he is taking ice chips and some popsicles today. We will intend to resume his medications including lisinopril, statin tomorrow, if the patient is taking by mouth medications at that time. We will give the patient a beta filipe today. We will also verify with the surgeon regarding the resuming of aspirin and Plavix when okay with them. We will continue to follow. DNP note has been reviewed, I agree with a documented findings and plan of care. Patient was seen and examined.
[2019-09-13] MEDS: MELATONIN 1 MG TAB PO SCH (20:59)
[2019-09-13] MEDS: ENOXAPARIN 40 MG/0.4 ML SYRINGE SQ SCH (20:59)
--- NOTE | 2019-09-13 21:59 | P.PN ---
Progress Note - Text Progress Note Date: 09/13/19 Chief Complaint: Abdominal pain Interval history: This is a 59-year-old patient of Dr. Ramon Duran. Chronic stable medical conditions include coronary artery disease with stent, total of 6 with the last one being in April 2019, hyperlipidemia, hypothyroid, hypertension. Patient has a prior history of Hodgkin's disease that is under control. 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. 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 Also started having vomiting. Some fever or chills. Patient progressively got worse. Presents to the ER.. Computed tomography scan of the abdomen showed mechanical small bowel obstruction with a stricture transition point seen in proximal ileum. NG tube was placed. Had surgery- Adhesive band was found to be causing a closed loop obstruction. Today-. NG tube remains in place. Laying in bed. Abdominal pain better. No flatus or bowel movement. No nausea vomiting. Review of systems: Was done for constitutional, cardiovascular, GI, pulmonary. relevant finding as above Active Medications Atorvastatin Calcium (Lipitor) 80 mg PO DAILY [facility] Benzocaine (Hurricaine [place]) 1 spray MUCOUS MEM QID PRN PRN Reason: Mouth Irritation Enoxaparin Sodium (Lovenox) 40 mg SQ DAILY@2100 [facility] Last Admin: 09/13/19 20:59 Dose: 40 mg Documented by: Hydromorphone HCl (Dilaudid) 1 mg IVP Q3HR PRN PRN Reason: Severe Pain Last Admin: 09/13/19 20:58 Dose: 1 mg Documented by: Hydromorphone HCl (Dilaudid) 0.5 mg IVP Q3HR PRN PRN Reason: Breakthrough Pain Last Admin: 09/12/19 22:36 Dose: 0.5 mg Documented by: Piperacillin Sod/Tazobactam (Sod 3.375 gm/ Sodium Chloride) 100 mls @ 25 mls/hr IVPB Q8H [facility] Last Admin: 09/13/19 21:00 Dose: 25 mls/hr Documented by: Sodium Chloride (Saline 0.9%) 1,000 mls @ 125 mls/hr IV .Q8H [facility] Last Admin: 09/13/19 16:38 Dose: 125 mls/hr Documented by: Levothyroxine Sodium (Synthroid) 50 mcg PO DAILY@0630 [facility] Last Admin: 09/13/19 05:31 Dose: 50 mcg Documented by: Lisinopril (Zestril) 5 mg PO DAILY [facility] Melatonin (Melatonin) 2 mg PO HS [facility] Last Admin: 09/13/19 20:59 Dose: 2 mg Documented by: Metoclopramide HCl (Reglan) 10 mg IVP Q6HR [facility] Last Admin: 09/13/19 17:40 Dose: 10 mg Documented by: Metoprolol Succinate (Toprol Xl) 12.5 mg PO DAILY [facility] Naloxone HCl (Narcan) 0.2 mg IV Q2M PRN PRN Reason: Opioid Reversal Ondansetron HCl (Zofran) 4 mg IVP Q4HR PRN PRN Reason: Nausea And Vomiting Last Admin: 09/13/19 08:44 Dose: 4 mg Documented by: Physical examination: VITAL SIGNS: 98.1, 88, 17, 150/80, 95% on room air GENERAL: Laying in bed, awake EYES: Pupils equal. Conjunctiva normal. HEENT: External appearance of nose and ears normal, oral cavity dry, NG tube in place to suction. NECK: JVD not raised; masses not palpable. HEART: First and second heart sounds are normal; no edema. LUNGS: Respiratory rate normal; clear to auscultation. ABDOMEN: Soft, tender, slightly distended, no guarding or rigidity, liver spleen not palpable, no masses palpable. PSYCH: Alert and oriented x3; mood and affect normal. INVESTIGATIONS, reviewed in the clinical context: White count 5.3 hemoglobin 13.9 progression 3.9 creatinine 0.9 to Previous testing White count 13.6 hemoglobin 16.3 platelets 278 Potassium 4.2 bun 21 crit 0.85 Computed tomography scan abdomen-small bowel obstruction EKG tracing personally reviewed by me-sinus rhythm, subtle ST segment depression in inferior leads Assessment: -Acute small bowel obstruction-status post removal of adhesive band causing her closed-loop obstruction -Coronary artery disease with a prior history of stents 6, last being in April [address] [facility] -Essential hypertension -Hyperlipidemia -Hypothyroidism -Obesity BMI 32.12 Plan: NG tube remains to suction. Continue with IV fluids. Care was discussed with the patient. Questions were answered. Antiplatelet agents to be resumed when okay with Dr. Coleman.
[2019-09-13] MEDS: HYDROmorphone 0.5 MG/0.5 ML SYRINGE IVP PRN (23:53)
[2019-09-14] MEDS: SODIUM CHLORIDE 0.9% 1,000 ML IV SCH ×3 (03:08→19:50)
[2019-09-14] MEDS: ONDANSETRON 4 MG/2 ML VIAL IVP PRN ×6 (03:09→23:03)
[2019-09-14] MEDS: HYDROmorphone 1 MG/ML 1 ML SYRINGE IVP PRN (03:09)
[2019-09-14] MEDS: LEVOTHYROXINE 50 MCG TAB PO SCH (05:04)
[2019-09-14] MEDS: PIPERACILLIN-TAZOBACTAM 3.375 GM in SODIUM CHLORIDE 0.9% 100 ML IVPB SCH ×3 (05:04→19:26)
[2019-09-14] MEDS: METOCLOPRAMIDE 5 MG/ML 2 ML VIAL IVP SCH ×3 (05:04→16:42)
[2019-09-14] MEDS: HYDROmorphone 0.5 MG/0.5 ML SYRINGE IVP PRN (06:04)
--- NOTE | 2019-09-14 12:15 | P.PN ---
Progress Note - Text Progress Note Date: 09/14/19 The patient's complaints of nausea. He has she had a small emesis this morning. On exam his vital signs are stable. His abdomen is mildly distended. There is some incisional tenderness. Status post exploratory laparotomy with lysis of adhesion. Patient appears to have a postoperative ileus. He'll have his nasogastric tube replaced. Continue nothing by mouth.
[2019-09-14] MEDS: ASPIRIN 81 MG PO SCH (12:34)
[2019-09-14] MEDS: CLOPIDOGREL 75 MG TAB PO SCH (12:35)
[2019-09-14] MEDS ORDERED: ASPIRIN 300 MG SUPP RECTAL STA (12:45)
[2019-09-14] MEDS: ATORVASTATIN 80 MG TAB PO SCH (14:55)
[2019-09-14] MEDS: LISINOPRIL 5 MG TAB PO SCH (14:55)
[2019-09-14] MEDS: METOPROLOL SUCCINATE (ER) 25 MG TAB.ER.24H PO SCH ×2 (14:55→16:41)
[2019-09-14] MEDS: ENOXAPARIN 40 MG/0.4 ML SYRINGE SQ SCH (23:02)
[2019-09-14] MEDS: MELATONIN 1 MG TAB PO SCH (23:03)
--- NOTE | 2019-09-15 00:58 | P.PN ---
Progress Note - Text Progress Note Date: 09/14/19 Chief Complaint: Abdominal pain Interval history: This is a 59-year-old patient of Dr. Ramon Duran. Chronic stable medical conditions include coronary artery disease with stent, total of 6 with the last one being in April 2019, hyperlipidemia, hypothyroid, hypertension. Patient has a prior history of Hodgkin's disease that is under control. 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 Also started having vomiting. Some fever or chills. Patient progressively got worse. Presents to the ER.. Computed tomography scan of the abdomen showed mechanical small bowel obstruction with a stricture transition point seen in proximal ileum. NG tube was placed. Had surgery- Adhesive band was found to be causing a closed loop obstruction. Today-. NG tube remains in place. Laying in bed. Abdominal pain better. No flatus or bowel movement. No nausea vomiting. Review of systems: Was done for constitutional, cardiovascular, GI, pulmonary. relevant finding as above Active Medications Aspirin (Aspirin) 81 mg PO DAILY [facility] Last Admin: 09/14/19 12:34 Dose: Not Given Documented by: Atorvastatin Calcium (Lipitor) 80 mg PO DAILY [facility] Last Admin: 09/14/19 14:55 Dose: Not Given Documented by: Benzocaine (Hurricaine [place]) 1 spray MUCOUS MEM QID PRN PRN Reason: Mouth Irritation Clopidogrel Bisulfate (Plavix) 75 mg PO DAILY [facility] Last Admin: 09/14/19 12:35 Dose: Not Given Documented by: Enoxaparin Sodium (Lovenox) 40 mg SQ DAILY@2100 [facility] Last Admin: 09/14/19 23:02 Dose: Not Given Documented by: Hydromorphone HCl (Dilaudid) 1 mg IVP Q3HR PRN PRN Reason: Severe Pain Last Admin: 09/14/19 03:09 Dose: 1 mg Documented by: Hydromorphone HCl (Dilaudid) 0.5 mg IVP Q3HR PRN PRN Reason: Breakthrough Pain Last Admin: 09/14/19 06:04 Dose: 0.5 mg Documented by: Piperacillin Sod/Tazobactam (Sod 3.375 gm/ Sodium Chloride) 100 mls @ 25 mls/hr IVPB Q8H [facility] Last Admin: 09/14/19 19:26 Dose: 25 mls/hr Documented by: Sodium Chloride (Saline 0.9%) 1,000 mls @ 125 mls/hr IV .Q8H [facility] Last Admin: 09/14/19 19:50 Dose: Not Given Documented by: Levothyroxine Sodium (Synthroid) 50 mcg PO DAILY@0630 [facility] Last Admin: 09/14/19 05:04 Dose: 50 mcg Documented by: Lisinopril (Zestril) 5 mg PO DAILY [facility] Last Admin: 09/14/19 14:55 Dose: Not Given Documented by: Melatonin (Melatonin) 2 mg PO HS [facility] Last Admin: 09/14/19 23:03 Dose: Not Given Documented by: Metoclopramide HCl (Reglan) 10 mg IVP Q6HR [facility] Last Admin: 09/14/19 16:42 Dose: 10 mg Documented by: Metoprolol Succinate (Toprol Xl) 12.5 mg PO DAILY [facility] Last Admin: 09/14/19 16:41 Dose: 12.5 mg Documented by: Naloxone HCl (Narcan) 0.2 mg IV Q2M PRN PRN Reason: Opioid Reversal Ondansetron HCl (Zofran) 4 mg IVP Q4HR PRN PRN Reason: Nausea And Vomiting Last Admin: 09/14/19 23:03 Dose: 4 mg Documented by: Physical examination: VITAL SIGNS: 98.3, 1:30, 12, 172/81, 93% room air GENERAL: Laying in bed, awake EYES: Pupils equal. Conjunctiva normal. HEENT: External appearance of nose and ears normal, oral cavity dry, NG tube in place to suction. NECK: JVD not raised; masses not palpable. HEART: First and second heart sounds are normal; no edema. LUNGS: Respiratory rate normal; clear to auscultation. ABDOMEN: Soft, tender, slightly distended, no guarding or rigidity, liver spleen not palpable, no masses palpable. PSYCH: Alert and oriented x3; mood and affect normal. INVESTIGATIONS, reviewed in the clinical context: White count 5.3 hemoglobin 13.9 progression 3.9 creatinine 0.9 to Previous testing White count 13.6 hemoglobin 16.3 platelets 278 Potassium 4.2 bun 21 crit 0.85 Computed tomography scan abdomen-small bowel obstruction EKG tracing personally reviewed by me-sinus rhythm, subtle ST segment depression in inferior leads Assessment: -Acute small bowel obstruction-status post removal of adhesive band causing closed-loop obstruction -Coronary artery disease with a prior history of stents 6, last being in April 2019 at [facility] -Essential hypertension -Hyperlipidemia -Hypothyroidism -Obesity BMI 32.12 Plan: NG tube remains to suction. Continue with IV fluids. Care was discussed with the patient. Cardiology the case.
[2019-09-15] MEDS: METOCLOPRAMIDE 5 MG/ML 2 ML VIAL IVP SCH ×4 (01:22→18:15)
[2019-09-15] MEDS: SODIUM CHLORIDE 0.9% 1,000 ML IV SCH ×3 (04:56→18:17)
[2019-09-15] MEDS: LEVOTHYROXINE 50 MCG TAB PO SCH (04:57)
[2019-09-15] MEDS: PIPERACILLIN-TAZOBACTAM 3.375 GM in SODIUM CHLORIDE 0.9% 100 ML IVPB SCH ×3 (04:57→21:38)
[2019-09-15] MEDS: ASPIRIN 81 MG PO SCH (08:55)
[2019-09-15] MEDS: LISINOPRIL 5 MG TAB PO SCH (08:56)
[2019-09-15] MEDS: CLOPIDOGREL 75 MG TAB PO SCH (08:56)
[2019-09-15] MEDS: ATORVASTATIN 80 MG TAB PO SCH (08:56)
[2019-09-15] MEDS: METOPROLOL SUCCINATE (ER) 25 MG TAB.ER.24H PO SCH (08:57)
--- NOTE | 2019-09-15 09:59 | P.PN ---
Subjective Progress Note Date: 09/15/19 CHIEF COMPLAINT: Abdominal pain HISTORY OF PRESENT ILLNESS: 59-year-old male who is status post exploratory laparotomy with lysis of adhesions. Patient reports multiple episodes of vomiting overnight. NG tube was attempted multiple times overnight but was unsuccessful. Patient does report passing a small amount of flatus this morning. Denies abdominal pain. PHYSICAL EXAM: VITAL SIGNS: Reviewed. GENERAL: Well-developed in no acute distress. HEENT: No sclera icterus. Extraocular movements grossly intact. Moist buccal mucosa. Head is atraumatic, normocephalic. ABDOMEN: Soft. Distended. Nontender. NEUROLOGIC: Alert and oriented. Cranial nerves II through XII grossly intact. ASSESSMENT: 1. Small bowel obstruction, status post exploratory laparotomy with lysis of adhesions 2. Postoperative ileus PLAN: 1. NPO 2. Will attempt NG tube if patient begins throwing up again today 3. Continue Reglan Nurse practitioner note has been reviewed by physician. Signing provider agrees with the documented findings, assessment, and plan of care. Objective - Vital Signs Vital signs: Vital Signs Temp 98.5 F 09/15/19 08:00 Pulse 109 H 09/15/19 08:00 Resp 12 09/15/19 08:00 BP 133/88 09/15/19 08:00 Pulse Ox 95 09/15/19 08:00 Intake & Output 09/14/19 09/15/19 09/15/19 18:59 06:59 18:59 Intake Total 1000 Output Total 75 Balance 925 Intake: IV 1000 Sodium Chloride 0.9% 1, 1000 000 ml @ 125 mls/hr IV . Q8H [facility] Rx#:[id number] Output: Emesis 75 Other: Voiding Method Toilet Urinal # Voids 2 1 - Labs CBC & Chem 7: 09/13/19 05:57 09/13/19 05:57
--- NOTE | 2019-09-15 12:47 | CDI ---
Documentation Clarification Form Date: 09/15/2019 12:40:19 PM From: Rosy RodriguezMacdonaldDERECK rocha, CCDS Admit Date: 09/10/2019 09:53:00 PM Patient Name: Rusty Lebron Visit Number: [id number] Discharge Date: ATTENTION: The Clinical Documentation Specialists (CDI) and [facility] Coding Staff appreciate your assistance in clarifying documentation. Please respond to the clarification below the line at the bottom and electronically sign. The CDI & [facility] Coding staff will review the response and follow-up if needed. Please note: Queries are made part of the Legal Health Record. If you have any questions, please contact the author of this message via ITS. Dr. Cresencio Coleman: Per the surgeon's progress notes on 09/14 & 09/15, the patient is diagnosed with a postoperative ileus status post exploratory laparotomy & lysis of adhesions for small bowel obstruction. Patients Admitting Diagnosis: SBO secondary to adhesive band causing closed loop obstruction Post-Operative Diagnosis: Same. Procedure performed: Exploratory laparotomy & lysis of adhesions. History/Risk Factors: CAD w/stents, Hyperlipidemi, Hypothyroid, Hypertension, Hodgkin's disease. Clinical Indicators: Presented with abdominal pain with abdominal distention, vomitin, fever, chills, bowel obstruction found on CT & patient underwent surgery as above. Treatment: NGT, subsequently removed, surgery performed, NGT replaced for postoperative ileus. Dilaudid, IV Zofran, IV fluid bolus, IV Reglan, IV Zosyn. In order to accurately reflect this patients severity of illness, please clarify if the postoperative ileus is the result of the surgical procedure? Yes No Other, please specify Unable to determine (Last Revision: November 2017) Unable to determine MTDD
--- NOTE | 2019-09-15 13:53 | P.PN ---
Subjective This is a pleasant 59-year-old male past medical history significant for coronary artery disease status post recent stent placement in April 2019, hypertension and dyslipidemia. He initially presented to the hospital with abdominal discomfort and was found to have a small bowel obstruction. He underwent surgery with Dr. Arndt. Unfortunately his postoperative recovery has been complicated by an ileus. He continues to feel quite nauseated and is vomiting whenever he attempts oral intake. An NG tube was attempted yesterday a nd not successful. Rectal aspirin was recommended however the patient declined to have this administered. He continues to feel abdominal fullness with nausea, vomiting and frequent belching. He denies chest pain, shortness of breath, dizziness or palpitations. Blood pressure 133/88 heart rate 109 afebrile maintaining oxygen saturation on room air. Telemetry tracings indicate persistent sinus tachycardia. GENERAL: Well-appearing, well-nourished and in no acute distress. NECK: Supple without JVD or thyromegaly. LUNGS: Breath sounds clear to auscultation bilaterally. Respiration equal and unlabored. No wheezes, rales or rhonchi. HEART: Regular rate and rhythm without murmurs, rubs or gallops. S1 and S2 heard. EXTREMITIES: Normal range of motion, no edema. No clubbing or cyanosis. Peripheral pulses intact. ASSESSMENT Acute small bowel obstruction status post laparotomy with lysis of adhesion with postoperative ileus Ileus Sinus tachycardia History of coronary artery disease status post stent placement was recently at [facility] April 2019 was maintained on dual antiplatelet therapy prior to surgery Hypertension Dyslipidemia PLAN Discussed the importance of [place] aspirin with the patient and he adamantly declines. The risk for in-stent restenosis has been explained in detail. Check electrolytes, TSH and CBC. We will continue to follow and make recommendations accordingly. Nurse Practitioner note has been reviewed, I agree with a documented findings and plan of care. Patient was seen and examined. Objective - Vital Signs Vital signs: Vital Signs Temp 98.5 F 09/15/19 08:00 Pulse 109 H 09/15/19 08:00 Resp 12 09/15/19 08:00 BP 133/88 09/15/19 08:00 Pulse Ox 95 09/15/19 08:00 Intake & Output 09/14/19 09/15/19 09/15/19 18:59 06:59 18:59 Intake Total 1000 Output Total 75 Balance 925 Intake: IV 1000 Sodium Chloride 0.9% 1, 1000 000 ml @ 125 mls/hr IV . Q8H [facility] Rx#:[id number] Output: Emesis 75 Other: Voiding Method Toilet Urinal # Voids 2 1 - Labs CBC & Chem 7: 09/13/19 05:57 09/13/19 05:57
[2019-09-15 14:36] LABS: HCT 45.2 % (39.0-53.0); HGB 15.4 gm/dL (13.0-17.5); MCH 29.2 pg (25.0-35.0); MCHC 34.2 g/dL (31.0-37.0); MCV 85.5 fL (80.0-100.0); Mean Platelet Volume 7.4; Platelet Count 318 k/uL (150-450); RBC 5.28 m/uL (4.30-5.90); RDW 12.9 % (11.5-15.5); WBC 8.1 k/uL (3.8-10.6)
[2019-09-15 14:52] LABS: Albumin 4.5 g/dL (3.5-5.0); Calcium 9.5 mg/dL (8.4-10.2); Magnesium 2.7 mg/dL (1.6-2.3); Total Bilirubin 0.8 mg/dL (0.2-1.3); Total Protein 7.3 g/dL (6.3-8.2)
[2019-09-15] MEDS ORDERED: DIAZEPAM 2 MG TAB PO PRN (20:43)
[2019-09-15] MEDS: ENOXAPARIN 40 MG/0.4 ML SYRINGE SQ SCH (21:38)
[2019-09-15] MEDS ORDERED: METOPROLOL TARTRATE 50 MG TAB PO STA (22:00)
[2019-09-15] MEDS: MELATONIN 1 MG TAB PO SCH (22:14)
--- NOTE | 2019-09-15 22:57 | CT ---
EXAMINATION TYPE: CT chest angio for PE DATE OF EXAM: 09/15/2019 COMPARISON: None HISTORY: increased HR CT DLP: 523.6 mGycm Automated exposure control for dose reduction was used. CONTRAST: Performed with IV Contrast, patient injected with 80 mL of Isovue 370. Multiple axial sections were obtained from the thoracic inlet to the diaphragm with intravenous contr ast. There are 3-D post processed images. There is some patchy scarring and atelectasis at the lung bases. There is dilated fluid-filled stomac h. There is hiatal hernia. There is dilated fluid-filled esophagus. Heart size is normal. There is no pericardial effusion. There is normal contrast opacification of the pulmonary arteries. I see no filling defects. Thoracic aorta is intact without evidence of aneurysm or dissection. There is no mediastinal adenopat hy. Thoracic vertebra show normal spacing and alignment. There is spurring of the endplates. There is no evidence of focal bone destruction. There is anterior wedging of T7 vertebra with 25% loss of height. Fracture appears old. IMPRESSION: No evidence of pulmonary embolism. Dilated stomach with fluid. Dilated esophagus with fluid. This appears new compared to recent CT scan of 09/10/2019. Gastric or small bowel obstruction should be considered. There is evidence of a mechan ical small bowel obstruction on recent CT scan.
--- NOTE | 2019-09-16 00:45 | P.PN ---
Progress Note - Text Progress Note Date: 09/15/19 Chief Complaint: Abdominal pain Interval history: This is a 59-year-old patient of Dr. Ramon Duran. Chronic stable medical conditions include coronary artery disease with stent, total of 6 with the last one being in April 2019, hyperlipidemia, hypothyroid, hypertension. Patient has a prior history of Hodgkin's disease that is under control. 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 Also started having vomiting. Some fever or chills. Patient progressively got worse. Presents to the ER.. Computed tomography scan of the abdomen showed mechanical small bowel obstruction with a stricture transition point seen in proximal ileum. NG tube was placed. Had surgery- Adhesive band was found to be causing a closed loop obstruction. Today-. NG tube remains in place. Positive flatus. Abdomen distended. Late in the evening patient was tachycardic. I did order a computed tomography scan of the chest following an EKG that showed sinus tachycardia. Review of systems: Was done for constitutional, cardiovascular, GI, pulmonary. relevant finding as above Active Medications Aspirin (Aspirin) 81 mg PO DAILY [facility] Last Admin: 09/15/19 08:55 Dose: Not Given Documented by: Atorvastatin Calcium (Lipitor) 80 mg PO DAILY [facility] Last Admin: 09/15/19 08:56 Dose: Not Given Documented by: Benzocaine (Hurricaine [place]) 1 spray MUCOUS MEM QID PRN PRN Reason: Mouth Irritation Clopidogrel Bisulfate (Plavix) 75 mg PO DAILY [facility] Last Admin: 09/15/19 08:56 Dose: Not Given Documented by: Diazepam (Valium) 2 mg PO HS PRN PRN Reason: Insomnia Last Admin: 09/15/19 23:03 Dose: 2 mg Documented by: Enoxaparin Sodium (Lovenox) 40 mg SQ DAILY@2100 [facility] Last Admin: 09/15/19 21:38 Dose: Not Given Documented by: Hydromorphone HCl (Dilaudid) 1 mg IVP Q3HR PRN PRN Reason: Severe Pain Last Admin: 09/14/19 03:09 Dose: 1 mg Documented by: Hydromorphone HCl (Dilaudid) 0.5 mg IVP Q3HR PRN PRN Reason: Breakthrough Pain Last Admin: 09/14/19 06:04 Dose: 0.5 mg Documented by: Piperacillin Sod/Tazobactam (Sod 3.375 gm/ Sodium Chloride) 100 mls @ 25 mls/hr IVPB Q8H [facility] Last Admin: 09/15/19 21:38 Dose: Not Given Documented by: Sodium Chloride (Saline 0.9%) 1,000 mls @ 125 mls/hr IV .Q8H [facility] Last Admin: 09/15/19 18:17 Dose: Not Given Documented by: Levothyroxine Sodium (Synthroid) 50 mcg PO DAILY@0630 [facility] Last Admin: 09/15/19 04:57 Dose: Not Given Documented by: Lisinopril (Zestril) 5 mg PO DAILY [facility] Last Admin: 09/15/19 08:56 Dose: Not Given Documented by: Melatonin (Melatonin) 2 mg PO HS [facility] Last Admin: 09/15/19 22:14 Dose: Not Given Documented by: Metoclopramide HCl (Reglan) 10 mg IVP Q6HR [facility] Last Admin: 09/15/19 18:15 Dose: Not Given Documented by: Metoprolol Succinate (Toprol Xl) 12.5 mg PO DAILY [facility] Last Admin: 09/15/19 08:57 Dose: Not Given Documented by: Naloxone HCl (Narcan) 0.2 mg IV Q2M PRN PRN Reason: Opioid Reversal Ondansetron HCl (Zofran) 4 mg IVP Q4HR PRN PRN Reason: Nausea And Vomiting Last Admin: 09/14/19 23:03 Dose: 4 mg Documented by: Physical examination: VITAL SIGNS: 98, 129, 12, 11 7/87, 95% room air GENERAL: Laying in bed, awake EYES: Pupils equal. Conjunctiva normal. HEENT: External appearance of nose and ears normal, oral cavity dry, NG tube in place to suction. NECK: JVD not raised; masses not palpable. HEART: First and second heart sounds are normal; no edema. LUNGS: Respiratory rate normal; clear to auscultation. ABDOMEN: Soft, tender, distended, no guarding or rigidity, liver spleen not palpable, no masses palpable. Bowel sounds present PSYCH: Alert and oriented x3; mood and affect normal. INVESTIGATIONS, reviewed in the clinical context: White count 8.1 hemoglobin 15.4 potassium 3 bun 33 creatinine 1.04 EKG-sinus tachycardia Chest CT-negative for PE. Fluid retention in the stomach and esophagus. Previous testing White count 13.6 hemoglobin 16.3 platelets 278 Potassium 4.2 bun 21 crit 0.85 Computed tomography scan abdomen-small bowel obstruction EKG tracing personally reviewed by me-sinus rhythm, subtle ST segment depression in inferior leads Assessment: -Acute small bowel obstruction-status post removal of adhesive band causing closed-loop obstruction -Sinus tachycardia -Acute postop ileus, clinically and has evidence the computed tomography scan findings today. -Coronary artery disease with a prior history of stents 6, last being in April 2019 at [facility] -Essential hypertension -Hyperlipidemia -Hypothyroidism -Obesity BMI 32.12 Plan: Patient had NG tube. Continue with IV fluids. Change IV fluids to LR at 1 50 mL per hour. Follow with surgery.
[2019-09-16] MEDS: LACTATED RINGERS 1,000 ML IV SCH ×4 (00:56→21:57)
[2019-09-16] MEDS: METOCLOPRAMIDE 5 MG/ML 2 ML VIAL IVP SCH ×4 (00:56→17:22)
[2019-09-16] MEDS: PIPERACILLIN-TAZOBACTAM 3.375 GM in SODIUM CHLORIDE 0.9% 100 ML IVPB SCH ×3 (05:50→21:57)
[2019-09-16] MEDS: LEVOTHYROXINE 50 MCG TAB PO SCH (05:51)
[2019-09-16 06:42] LABS: HCT 46.5 % (39.0-53.0); HGB 15.1 gm/dL (13.0-17.5); MCHC 32.4 g/dL (31.0-37.0); MCV 86.4 fL (80.0-100.0); Mean Platelet Volume 7.5; Platelet Count 354 k/uL (150-450); RBC 5.38 m/uL (4.30-5.90); RDW 13.1 % (11.5-15.5); WBC 12.5 k/uL (3.8-10.6)
[2019-09-16 07:01] LABS: African American GFR (CKD) >90 (>60 ml/min/1.73 sqM); Anion Gap 13 mmol/L; Blood Urea Nitrogen 42 mg/dL (9-20); Calcium 9.2 mg/dL (8.4-10.2); Carbon Dioxide 32 mmol/L (22-30); Chloride 99 mmol/L (98-107); Glucose 116 mg/dL (74-99); Non-African American GFR(CKD) 89 (>60 ml/min/1.73 sqM); Potassium 3.2 mmol/L (3.5-5.1); Sodium 144 mmol/L (137-145)
[2019-09-16] MEDS: ASPIRIN 81 MG PO SCH (07:42)
[2019-09-16] MEDS: ATORVASTATIN 80 MG TAB PO SCH (07:42)
[2019-09-16] MEDS: CLOPIDOGREL 75 MG TAB PO SCH (07:42)
[2019-09-16] MEDS: METOPROLOL SUCCINATE (ER) 25 MG TAB.ER.24H PO SCH (07:43)
[2019-09-16] MEDS: LISINOPRIL 5 MG TAB PO SCH (07:43)
[2019-09-16] MEDS ORDERED: Potassium Replacement Protocol 1 EACH MISC MISCELLANE PRN (09:58)
[2019-09-16] MEDS: HYDROmorphone 1 MG/ML 1 ML SYRINGE IVP PRN (10:17)
--- NOTE | 2019-09-16 10:29 | P.PN ---
Subjective This is a pleasant 59-year-old male past medical history significant for coronary artery disease status post recent stent placement in April 2019, hypertension and dyslipidemia. He initially presented to the hospital with abdominal discomfort and was found to have a small bowel obstruction. He underwent surgery with Dr. Arndt. Unfortunately his postoperative recovery has been complicated by an ileus. He continues to feel quite nauseated and is vomiting whenever he attempts oral intake. An NG tube was attempted yesterday a nd not successful. Rectal aspirin was recommended however the patient declined to have this administered. He continues to feel abdominal fullness with nausea, vomiting and frequent belching. He denies chest pain, shortness of breath, dizziness or palpitations. Blood pressure 133/88 heart rate 109 afebrile maintaining oxygen saturation on room air. Telemetry tracings indicate persistent sinus tachycardia. 09/16/2019 Pt is seen and examined sitting up in bed. He is quite uncomfortable and nauseat ed. His abdomen has increased in size and is quite protuberant. NG tube was attempted and failed again this morning. He has not had any PO meds since prior to surgery. Blood pressure 125/79 heart rate 101 afebrile and maintaining oxygen saturation on room air. Laboratory data reviewed, WBC 12.5, hgb 15.1, apy813, sodium 144, potassium 3.2, creatinine 0.93, TSH 1.05. He denies chest pain, dizziness, shortness of breath or palpitations. GENERAL: Well-appearing, well-nourished and in mild distress secondary to abdominal pain and nausea. NECK: Supple without JVD or thyromegaly. LUNGS: Breath sounds clear to auscultation bilaterally. Respiration equal and unlabored. No wheezes, rales or rhonchi. HEART: Regular rate and rhythm without murmurs, rubs or gallops. S1 and S2 heard. EXTREMITIES: Normal range of motion, no edema. No clubbing or cyanosis. Peripheral pulses intact. ASSESSMENT Acute small bowel obstruction status post laparotomy with lysis of adhesion with postoperative ileus Ileus Sinus tachycardia Leukocytosis Hypokalemia History of coronary artery disease status post stent placement was recently at [facility] April 2019 was maintained on dual antiplatelet therapy prior to surgery Hypertension Dyslipidemia PLAN Replace potassium per protocol. Initiate on heparin infusion secondary to refusal of aspirin and ongoing ileus. 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 Patient was seen and examined. Objective - Vital Signs Vital signs: Vital Signs Temp 98.0 F 09/16/19 07:28 Pulse 101 H 09/16/19 07:28 Resp 18 09/16/19 07:28 BP 125/79 09/16/19 07:28 Pulse Ox 90 L 09/16/19 07:28 Intake & Output 09/15/19 09/16/19 09/16/19 18:59 06:59 18:59 Intake Total 1000 Balance 1000 Intake: Intake, IV Titration 1000 Amount Sodium Chloride 0.9% 1, 1000 000 ml @ 125 mls/hr IV . Q8H [facility] Rx#:[id number] Other: Voiding Method Toilet Toilet Urinal Urinal # Bowel Movements 2 - Labs CBC & Chem 7: 09/16/19 06:20 09/16/19 06:20 Labs: Abnormal Lab Results - Last 24 Hours (Table) 09/15/19 09/16/19 09/16/19 Range/Units 14:11 06:20 06:20 WBC 12.5 H (3.8-10.6) k/uL Potassium 3.0 L 3.2 L (3.5-5.1) mmol/L Carbon Dioxide 33 H 32 H (22-30) mmol/L BUN 33 H 42 H (9-20) mg/dL Glucose 112 H 116 H (74-99) mg/dL Magnesium 2.7 H (1.6-2.3) mg/dL
[2019-09-16] MEDS: POTASSIUM CHLORIDE 10 MEQ in WATER FOR INJECTION 1 100ML.BAG IVPB SCH ×4 (10:51→21:53)
[2019-09-16 11:20] LABS: INR 1.2 (<1.2); Partial Thromboplastin Time 24.7 sec (22.0-30.0); Prothrombin Time 12.2 sec (9.0-12.0)
[2019-09-16] MEDS: HEPARIN SOD,PORK IN 0.45% NACL 25,000 UNIT in 0.45% NACL 1 250ML.BAG IV SCH (11:22)
--- NOTE | 2019-09-16 11:30 | P.PN ---
<Britta Roman Lennox - Last Filed: 09/16/19 11:27> Subjective Progress Note Date: 09/16/19 CHIEF COMPLAINT: Abdominal pain HISTORY OF PRESENT ILLNESS: 59-year-old male who is status post exploratory laparotomy with lysis of adhesions. Patient has developed postoperative ileus with nausea and vomiting. NG tube has been attempted several times without success. Patient was made strict NPO yesterday however he was still receiving water, ice chips, and popsicles this morning. His abdomen is much more distended and he has been having episodes of bilious emesis this morning. PHYSICAL EXAM: VITAL SIGNS: Reviewed. GENERAL: Well-developed in mild distress. HEENT: No sclera icterus. Extraocular movements grossly intact. Moist buccal mucosa. Head is atraumatic, normocephalic. ABDOMEN: Soft. Distended. Nontender. NEUROLOGIC: Alert and oriented. Cranial nerves II through XII grossly intact. ASSESSMENT: 1. Small bowel obstruction, status post exploratory laparotomy with lysis of adhesions 2. Postoperative ileus PLAN: 1. Strict NPO 2. Will re-attempt NG tube 3. Continue Reglan Nurse practitioner note has been reviewed by physician. Signing provider agrees with the documented findings, assessment, and plan of care. Objective - Vital Signs Vital signs: Vital Signs Temp 98.0 F 09/16/19 07:28 Pulse 101 H 09/16/19 07:28 Resp 18 09/16/19 07:28 BP 125/79 09/16/19 07:28 Pulse Ox 90 L 09/16/19 07:28 Intake & Output 09/15/19 09/16/19 09/16/19 18:59 06:59 18:59 Intake Total 1000 Balance 1000 Intake: Intake, IV Titration 1000 Amount Sodium Chloride 0.9% 1, 1000 000 ml @ 125 mls/hr IV . Q8H [facility] Rx#:[id number] Other: Voiding Method Toilet Toilet Urinal Urinal # Bowel Movements 2 - Labs CBC & Chem 7: 09/16/19 06:20 09/16/19 06:20 Labs: Abnormal Lab Results - Last 24 Hours (Table) 09/15/19 09/16/19 09/16/19 Range/Units 14:11 06:20 06:20 WBC 12.5 H (3.8-10.6) k/uL PT (9.0-12.0) sec INR (<1.2) Potassium 3.0 L 3.2 L (3.5-5.1) mmol/L Carbon Dioxide 33 H 32 H (22-30) mmol/L BUN 33 H 42 H (9-20) mg/dL Glucose 112 H 116 H (74-99) mg/dL Magnesium 2.7 H (1.6-2.3) mg/dL 09/16/19 Range/Units 10:53 WBC (3.8-10.6) k/uL PT 12.2 H (9.0-12.0) sec INR 1.2 H (<1.2) Potassium (3.5-5.1) mmol/L Carbon Dioxide (22-30) mmol/L BUN (9-20) mg/dL Glucose (74-99) mg/dL Magnesium (1.6-2.3) mg/dL <Neo Jain - Last Filed: 09/16/19 15:08> Subjective As above. Patient had nasogastric tube placed today with almost 4 L output. Says he feels significantly better. Denies abdominal pain currently. Keep nasogastric tube to suction. Consult IR for PICC line and subsequent TPN. Objective - Vital Signs Vital signs: Vital Signs Temp 98.0 F 09/16/19 14:35 Pulse 110 H 09/16/19 14:35 Resp 17 09/16/19 14:35 BP 112/69 09/16/19 14:35 Pulse Ox 94 L 09/16/19 14:35 Intake & Output 09/15/19 09/16/19 09/16/19 18:59 06:59 18:59 Intake Total 1000 680 Balance 1000 680 Intake: Intake, IV Titration 1000 680 Amount Heparin Sod,Pork in 0.45% 30 NaCl 25,000 unit In 0.45 % NaCl 1 250ml.bag @ 9. 585 UNITS/KG/HR 10 mls/hr IV .Q24H [facility] Rx#: [id number] Lactated Ringers 1,000 ml 450 @ 150 mls/hr IV .Q6H40M [facility] Rx#:[id number] Piperacillin-Tazobactam 3 100 .375 gm In Sodium Chloride 0.9% 100 ml @ 25 mls/hr IVPB Q8H [facility] Rx#: [id number] Potassium Chloride 10 meq 100 In Water For Injection 1 100ml.bag @ 100 mls/hr IVPB Q1HR [facility] Rx#: [id number] Sodium Chloride 0.9% 1, 1000 000 ml @ 125 mls/hr IV . Q8H [facility] Rx#:[id number] Other: Voiding Method Toilet Toilet Urinal Urinal # Bowel Movements 2 - Labs CBC & Chem 7: 09/16/19 06:20 09/16/19 06:20 Labs: Abnormal Lab Results - Last 24 Hours (Table) 09/16/19 09/16/19 09/16/19 Range/Units 06:20 06:20 10:53 WBC 12.5 H (3.8-10.6) k/uL PT 12.2 H (9.0-12.0) sec INR 1.2 H (<1.2) Potassium 3.2 L (3.5-5.1) mmol/L Carbon Dioxide 32 H (22-30) mmol/L BUN 42 H (9-20) mg/dL Glucose 116 H (74-99) mg/dL
[2019-09-16] MEDS: MELATONIN 1 MG TAB PO SCH (19:47)
[2019-09-16 20:30] LABS: Glucose,Whole Blood 94 mg/dL (75-99)
[2019-09-16] MEDS: HEPARIN SODIUM,PORCINE 5,000 UNIT/ML 1 ML VIAL IV PRN (22:05)
[2019-09-17] MEDS: HYDROmorphone 1 MG/ML 1 ML SYRINGE IVP PRN (00:43)
[2019-09-17] MEDS: METOCLOPRAMIDE 5 MG/ML 2 ML VIAL IVP SCH ×5 (01:34→23:16)
[2019-09-17] MEDS: LACTATED RINGERS 1,000 ML IV SCH ×4 (05:24→23:15)
[2019-09-17] MEDS: PIPERACILLIN-TAZOBACTAM 3.375 GM in SODIUM CHLORIDE 0.9% 100 ML IVPB SCH ×3 (05:31→23:15)
[2019-09-17] MEDS: LEVOTHYROXINE 50 MCG TAB PO SCH (05:48)
[2019-09-17 06:06] LABS: Basophils # (A) 0.1 k/uL (0-0.2); Basophils % (A) 1 %; Eosinophils # (A) 0.1 k/uL (0-0.7); Eosinophils % (A) 1 %; HCT 42.3 % (39.0-53.0); HGB 13.8 gm/dL (13.0-17.5); Lymphocytes # (A) 1.1 k/uL (1.0-4.8); Lymphocytes % (A) 11 %; MCH 28.5 pg (25.0-35.0); MCHC 32.7 g/dL (31.0-37.0); MCV 87.2 fL (80.0-100.0); Mean Platelet Volume 7.6; Monocytes # (A) 0.7 k/uL (0-1.0); Monocytes % (A) 7 %; Neutrophils # (A) 7.8 k/uL (1.3-7.7); Neutrophils % (A) 78 %; Platelet Count 254 k/uL (150-450); RBC 4.84 m/uL (4.30-5.90)
[2019-09-17] MEDS: HEPARIN SOD,PORK IN 0.45% NACL 25,000 UNIT in 0.45% NACL 1 250ML.BAG IV SCH (06:09)
[2019-09-17 07:18] LABS: Glucose,Whole Blood 92 mg/dL (75-99)
[2019-09-17] MEDS: ASPIRIN 81 MG PO SCH (07:22)
[2019-09-17] MEDS: METOPROLOL SUCCINATE (ER) 25 MG TAB.ER.24H PO SCH (07:22)
[2019-09-17] MEDS: ATORVASTATIN 80 MG TAB PO SCH (07:22)
[2019-09-17] MEDS: LISINOPRIL 5 MG TAB PO SCH (07:22)
[2019-09-17] MEDS: CLOPIDOGREL 75 MG TAB PO SCH (07:22)
--- NOTE | 2019-09-17 09:09 | XR ---
EXAMINATION TYPE: XR abdomen 2V DATE OF EXAM: 09/17/2019 COMPARISON: NONE HISTORY: Abdominal distention TECHNIQUE: Abdomen examined in the upright view and supine view FINDINGS: There are some air-fluid levels within the upper abdomen. Appears to be colonic and small b owel. Small bowel loops are prominent within the mid to upper abdomen. Air is present to the rectum. No free air is identified. No suspicious differential air-fluid levels are present. No mass effect is evident. Organomegaly is not evident. Psoas margins are normal. IMPRESSION: 1. Nonspecific abdomen. There are some air-fluid levels within prominent small bowel loops within the mid abdomen with air present within the colon. Correlate for ileus. Follow-up can be performed as cl inically indicated.
[2019-09-17 10:44] LABS: ALT 16 U/L (4-49); AST 29 U/L (17-59); African American GFR (CKD) >90 (>60 ml/min/1.73 sqM); Albumin 3.3 g/dL (3.5-5.0); Alkaline Phosphatase 65 U/L (38-126); Anion Gap 8 mmol/L; Blood Urea Nitrogen 29 mg/dL (9-20); Calcium 8.1 mg/dL (8.4-10.2); Carbon Dioxide 37 mmol/L (22-30); Chloride 99 mmol/L (98-107); Glucose 89 mg/dL (74-99); Magnesium 2.7 mg/dL (1.6-2.3); Non-African American GFR(CKD) 87 (>60 ml/min/1.73 sqM); Potassium 3.1 mmol/L (3.5-5.1); Sodium 144 mmol/L (137-145); Total Bilirubin 0.9 mg/dL (0.2-1.3); Total Protein 5.7 g/dL (6.3-8.2)
--- NOTE | 2019-09-17 10:45 | P.PN ---
Progress Note - Text Progress Note Date: 09/16/19 Chief Complaint: Abdominal pain Interval history: This is a 59-year-old patient of Dr. Ramon Duran. Chronic stable medical conditions include coronary artery disease with stent, total of 6 with the last one being in April 2019, hyperlipidemia, hypothyroid, hypertension. Patient has a prior history of Hodgkin's disease that is under control. Patient's nocturnist is out of [facility]. 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 Also started having vomiting. Some fever or chills. Patient progressively got worse. Presents to the ER.. Computed tomography scan of the abdomen showed mechanical small bowel obstruction with a stricture transition point seen in proximal ileum. NG tube was placed. Had surgery- Adhesive band was found to be causing a closed loop obstruction. Today-. Computed tomography scan done to go to the last night. PE ruled out. Did shows severe fluid and stomach esophagus. NG tube had to be reinserted this morning. 2 L of fluid came right after. Abdomen distended. No flatus. No fever no chills. Abdominal discomfort present.. Review of systems: Was done for constitutional, cardiovascular, GI, pulmonary. relevant finding as above Active Medications Aspirin (Aspirin) 81 mg PO DAILY [facility] Last Admin: 09/17/19 07:22 Dose: Not Given Documented by: Atorvastatin Calcium (Lipitor) 80 mg PO DAILY [facility] Last Admin: 09/17/19 07:22 Dose: Not Given Documented by: Benzocaine (Hurricaine [place]) 1 spray MUCOUS MEM QID PRN PRN Reason: Mouth Irritation Clopidogrel Bisulfate (Plavix) 75 mg PO DAILY [facility] Last Admin: 09/17/19 07:22 Dose: Not Given Documented by: Diazepam (Valium) 2 mg PO HS PRN PRN Reason: Insomnia Last Admin: 09/15/19 23:03 Dose: 2 mg Documented by: Heparin Sodium (Porcine) (Heparin) 0 unit IV PER PROTOCOL PRN; Protocol PRN Reason: Low PTT Last Admin: 09/16/19 22:05 Dose: 4,000 unit Documented by: Hydromorphone HCl (Dilaudid) 1 mg IVP Q3HR PRN PRN Reason: Severe Pain Last Admin: 09/17/19 00:43 Dose: 1 mg Documented by: Hydromorphone HCl (Dilaudid) 0.5 mg IVP Q3HR PRN PRN Reason: Breakthrough Pain Last Admin: 09/14/19 06:04 Dose: 0.5 mg Documented by: Piperacillin Sod/Tazobactam (Sod 3.375 gm/ Sodium Chloride) 100 mls @ 25 mls/hr IVPB Q8H [facility] Last Admin: 09/17/19 05:31 Dose: 25 mls/hr Documented by: Lactated Ringer's (Lactated Ringers) 1,000 mls @ 150 mls/hr IV .Q6H40M [facility] Last Admin: 09/17/19 05:24 Dose: 150 mls/hr Documented by: Heparin Sodium/Sodium Chloride (25,000 unit/ Sodium Chloride) 250 mls @ 10 mls/hr IV .Q24H [facility]; Protocol Last Admin: 09/17/19 06:09 Dose: 12.46 units/kg/hr, 12.999 mls/hr Documented by: Levothyroxine Sodium (Synthroid) 50 mcg PO DAILY@0630 [facility] Last Admin: 09/17/19 05:48 Dose: Not Given Documented by: Lisinopril (Zestril) 5 mg PO DAILY [facility] Last Admin: 09/17/19 07:22 Dose: Not Given Documented by: Melatonin (Melatonin) 2 mg PO HS [facility] Last Admin: 09/16/19 19:47 Dose: Not Given Documented by: Metoclopramide HCl (Reglan) 10 mg IVP Q6HR [facility] Last Admin: 09/17/19 05:35 Dose: 10 mg Documented by: Metoprolol Succinate (Toprol Xl) 12.5 mg PO DAILY [facility] Last Admin: 09/17/19 07:22 Dose: Not Given Documented by: Miscellaneous Information (Potassium Per Protocol) 1 each MISCELLANE DAILY PRN; Protocol PRN Reason: Per Protocol Naloxone HCl (Narcan) 0.2 mg IV Q2M PRN PRN Reason: Opioid Reversal Ondansetron HCl (Zofran) 4 mg IVP Q4HR PRN PRN Reason: Nausea And Vomiting Last Admin: 09/14/19 23:03 Dose: 4 mg Documented by: Physical examination: VITAL SIGNS: 98, 110, 17, 112/69, 94% on room air GENERAL: Laying in bed, uncomfortable EYES: Pupils equal. Conjunctiva normal. HEENT: External appearance of nose and ears normal, oral cavity dry, NG tube in place to suction. NECK: JVD not raised; masses not palpable. HEART: First and second heart sounds are normal; no edema. LUNGS: Respiratory rate increased; clear to auscultation. ABDOMEN: Soft, tender, distended, no guarding or rigidity, liver spleen not palpable, no masses palpable. Bowel sounds present PSYCH: Alert and oriented x3; mood and affect normal. INVESTIGATIONS, reviewed in the clinical context: White count 12.5 hemoglobin 15.1 potassium 3.2 creatinine 0.93 . Previous testing White count 13.6 hemoglobin 16.3 platelets 278 Potassium 4.2 bun 21 crit 0.85 Computed tomography scan abdomen-small bowel obstruction EKG tracing personally reviewed by me-sinus rhythm, subtle ST segment depression in inferior leads Chest CT on September 15-negative for PE. Fluid retention in the stomach and esophagus Assessment: -Acute small bowel obstruction-status post removal of adhesive band causing closed-loop obstruction -Sinus tachycardia -Acute postop ileus, clinically and has evidence the computed tomography scan findings today., Slow to respond -Coronary artery disease with a prior history of stents 6, last being in April 2019 at [facility] -Essential hypertension -Hyperlipidemia -Hypothyroidism -Obesity BMI 32.12 Plan: Large aspirate from NG tube. Abdominal distention present. Follow with surgery. Dose of IV fluids was increased. Care is discussed with the patient. Follow electrolytes.
[2019-09-17] MEDS: POTASSIUM CHLORIDE 10 MEQ in WATER FOR INJECTION 1 100ML.BAG IVPB SCH ×4 (11:31→18:02)
[2019-09-17 11:48] LABS: Glucose,Whole Blood 77 mg/dL (75-99)
--- NOTE | 2019-09-17 12:22 | P.PN ---
Subjective This is a pleasant 59-year-old male past medical history significant for coronary artery disease status post recent stent placement in April 2019, hypertension and dyslipidemia. He initially presented to the hospital with abdominal discomfort and was found to have a small bowel obstruction. He underwent surgery with Dr. Arndt. Unfortunately his postoperative recovery has been complicated by an ileus. He continues to feel quite nauseated and is vomiting whenever he attempts oral intake. An NG tube was attempted yesterday a nd not successful. Rectal aspirin was recommended however the patient declined to have this administered. He continues to feel abdominal fullness with nausea, vomiting and frequent belching. He denies chest pain, shortness of breath, dizziness or palpitations. Blood pressure 133/88 heart rate 109 afebrile maintaining oxygen saturation on room air. Telemetry tracings indicate persistent sinus tachycardia. 09/16/2019 Pt is seen and examined sitting up in bed. He is quite uncomfortable and nauseat ed. His abdomen has increased in size and is quite protuberant. NG tube was attempted and failed again this morning. He has not had any PO meds since prior to surgery. Blood pressure 125/79 heart rate 101 afebrile and maintaining oxygen saturation on room air. Laboratory data reviewed, WBC 12.5, hgb 15.1, jav509, sodium 144, potassium 3.2, creatinine 0.93, TSH 1.05. He denies chest pain, dizziness, shortness of breath or palpitations. 10/18/2019 Patient was seen and examined sitting up in bed with NG tube in place. He states overall he is feeling better than he was yesterday however continues to have abdominal swelling and discomfort. Maintained on a heparin infusion. Heparin currently on hold for placement of PIC line for TPN. Blood pressure 132/80 heart rate 108 afebrile maintaining oxygen saturation on nasal cannula. Laboratory data reviewed, WBC 10, hemoglobin 13.8, platelets 254, sodium 144, potassium 3.1, creatinine 0.95, magnesium 2.7. GENERAL: Well-appearing, well-nourished and in mild distress secondary to abdominal pain and nausea. NECK: Supple without JVD or thyromegaly. LUNGS: Breath sounds clear to auscultation bilaterally. Respiration equal and unlabored. No wheezes, rales or rhonchi. HEART: Regular rate and rhythm without murmurs, rubs or gallops. S1 and S2 heard. EXTREMITIES: Normal range of motion, no edema. No clubbing or cyanosis. Peripheral pulses intact. ASSESSMENT Acute small bowel obstruction status post laparotomy with lysis of adhesion with postoperative ileus Ileus Sinus tachycardia Leukocytosis Hypokalemia History of coronary artery disease status post stent placement was recently at [facility] April 2019 was maintained on dual antiplatelet therapy prior to surgery Hypertension Dyslipidemia PLAN Continue potassium replacement. Continue heparin infusion until patient is tolerating oral. Aspirin and Plavix to be resumed once he can tolerate. Nurse Practitioner note has been reviewed, I agree with a documented findings and plan of care. Patient was seen and examined. Objective - Vital Signs Vital signs: Vital Signs Temp 98.4 F 09/17/19 07:32 Pulse 108 H 09/17/19 07:32 Resp 18 09/17/19 07:32 BP 132/80 09/17/19 07:32 Pulse Ox 97 09/17/19 01:23 Intake & Output 09/16/19 09/17/19 09/17/19 18:59 06:59 18:59 Intake Total 680 212.083 Output Total 1500 300 Balance 680 -1287.917 -300 Weight 104.326 kg 104.326 kg Intake: Intake, IV Titration 680 212.083 Amount Heparin Sod,Pork in 0.45% 30 212.083 NaCl 25,000 unit In 0.45 % NaCl 1 250ml.bag @ 9. 585 UNITS/KG/HR 10 mls/hr IV .Q24H [facility] Rx#: [id number] Lactated Ringers 1,000 ml 450 @ 150 mls/hr IV .Q6H40M [facility] Rx#:[id number] Piperacillin-Tazobactam 3 100 .375 gm In Sodium Chloride 0.9% 100 ml @ 25 mls/hr IVPB Q8H [facility] Rx#: [id number] Potassium Chloride 10 meq 100 In Water For Injection 1 100ml.bag @ 100 mls/hr IVPB Q1HR [facility] Rx#: [id number] Output: Gastric Drainage 900 Urine 600 300 Other: Voiding Method Toilet Toilet Urinal Urinal # Voids 2 - Labs CBC & Chem 7: 09/17/19 05:46 09/17/19 05:46 Labs: Abnormal Lab Results - Last 24 Hours (Table) 09/17/19 09/17/1920 Range/Units 05:46 05:46 05:46 Neutrophils # 7.8 H (1.3-7.7) k/uL APTT 43.5 H (22.0-30.0) sec Potassium 3.1 L (3.5-5.1) mmol/L Carbon Dioxide 37 H (22-30) mmol/L BUN 29 H (9-20) mg/dL Calcium 8.1 L (8.4-10.2) mg/dL Magnesium 2.7 H (1.6-2.3) mg/dL Total Protein 5.7 L (6.3-8.2) g/dL Albumin 3.3 L (3.5-5.0) g/dL
[2019-09-17 13:06] LABS: HCT 42.2 % (39.0-53.0); HGB 13.9 gm/dL (13.0-17.5); MCH 28.7 pg (25.0-35.0); MCHC 32.8 g/dL (31.0-37.0); MCV 87.6 fL (80.0-100.0); Mean Platelet Volume 7.8; Platelet Count 249 k/uL (150-450); RBC 4.82 m/uL (4.30-5.90); WBC 9.2 k/uL (3.8-10.6)
[2019-09-17 13:14] LABS: Calcium 8.3 mg/dL (8.4-10.2); Magnesium 2.8 mg/dL (1.6-2.3); Potassium 3.2 mmol/L (3.5-5.1)
[2019-09-17] MEDS ORDERED: MVI, ADULT NO.4 WITH VIT K 10 ML, TRACE (CONC-1ML/DOSE) 1 ML, SODIUM ACETATE 30 MEQ, PO... IV ONE ×6 (14:00)
--- NOTE | 2019-09-17 15:04 | IR ---
PICC LINE PLACEMENT: HISTORY: Infection requiring long-term antibiotic therapy PROCEDURE: Ultrasound and fluoroscopic guidance of PICC line placement. COMPLICATIONS: None ANESTHESIA: 1. 1% Lidocaine locally. FINDINGS/TECHNIQUE: The procedure was explained to the patient. The risks, complications, benefits and alternatives were discussed and any questions were answered. Informed consent was obtained. The patient was placed supine on the fluoroscopic table and prepped and draped in the usual sterile fash ion. Utilizing a 21 gauge needle and sonographic and fluoroscopic guidance, access in the left basi lic vein was achieved and there is placement of a 0.018 guidewire. The vein is patent. A 4-F sheath was placed over the guidewire. The guidewire and dilator were removed and a 4-F. PICC line was plac ed through the sheath with the tip at the level of the SVC. The sheath was removed, the catheter was flushed and sutured into position. The patient was stable throughout the procedure and remained sta ble upon discharge from the Department of Radiology. The vein puncture was patent under ultrasound. A velarde scale image was obtained to document patency of the vein punctured. All elements of the maximal barrier technique were utilized. FLUOROSCOPY TIME: 1.8 minutes and one image submitted IMPRESSION: Successful PICC line placement under ultrasound and fluoroscopic guidance.
[2019-09-17] MEDS: FAT EMULSION 20% 250 ML IV SCH (15:54)
[2019-09-17] MEDS: HEPARIN SODIUM,PORCINE 5,000 UNIT/ML 1 ML VIAL IV PRN (16:36)
[2019-09-17] MEDS: HYDROmorphone 0.5 MG/0.5 ML SYRINGE IVP PRN (18:08)
--- NOTE | 2019-09-17 18:36 | P.PN ---
Subjective Progress Note Date: 09/17/19 CHIEF COMPLAINT: Small bowel obstruction HISTORY OF PRESENT ILLNESS: The patient is a 59-year-old status post exploratory laparotomy and lysis of adhesions. He had severe post-op ileus. He reports feeling moderately better since placement of nasogastric tube. He is passing flatus has moderate bowel movements. No new complaints otherwise. Nasogastric outputs over 1 L. ROS: No fevers or chills. No new chest pain. PHYSICAL EXAM: VITAL SIGNS: Reviewed CONSTITUTIONAL: Well developed and in no acute distress. EYES: Conjuctivae without sclera icterus. Extraocular movements grossly intact. HEAD, EARS, NOSE, THROAT: Moist buccal mucosa. Head is atraumatic, normocephalic. Hears conversational speech. NGT present NECK: Supple. RESPIRATORY: Non-labored respirations and equal bilateral excursions. CARDIOVASCULAR: Palpable 2+ radial pulses. ABDOMEN: Soft. No peritonitis. MUSCULOSKELETAL: No gross deformity of the lower extremities noted. No clubbing. No cyanosis. SKIN: Good skin turgor. Well perfused. NEUROLOGIC: Cranial nerves I through XII grossly intact. No focal or late ralizing signs. PSYCH: Alert and oriented to person, place and time. Appropriate affect CLINICAL LABS: WBC down 9,200. Potassium 3.2. REPORT: Abdominal xray show ileus moderately improved. No small bowel obstruction. ASSESSMENT: 1. Small bowel obstruction 2. S/p lysis of adhesions 3. Ileus 4. Inadequate protein intake 5. Hypokalemia PLAN: 1. Currently pending PICC line for TPN. 2. Agree with TPN. 3. Continue hospitalization 4. Continue NPO status Objective - Vital Signs Vital signs: Vital Signs Temp 99.8 F H 09/17/19 15:23 Pulse 105 H 09/17/19 15:23 Resp 17 09/17/19 15:23 BP 147/69 09/17/19 15:23 Pulse Ox 92 L 09/17/19 15:23 Intake & Output 09/16/19 09/17/19 09/17/19 18:59 06:59 18:59 Intake Total 680 355.864 2214.877 Output Total 1500 300 Balance 680 -1287.917 986.877 Weight 104.326 kg 104.326 kg Intake: Intake, IV Titration 680 773.339 6977.877 Amount Heparin Sod,Pork in 0.45% 30 212.083 86.877 NaCl 25,000 unit In 0.45 % NaCl 1 250ml.bag @ 9. 585 UNITS/KG/HR 10 mls/hr IV .Q24H [facility] Rx#: [id number] Lactated Ringers 1,000 ml 450 1200 @ 150 mls/hr IV .Q6H40M [facility] Rx#:[id number] Piperacillin-Tazobactam 3 100 .375 gm In Sodium Chloride 0.9% 100 ml @ 25 mls/hr IVPB Q8H [facility] Rx#: [id number] Potassium Chloride 10 meq 100 In Water For Injection 1 100ml.bag @ 100 mls/hr IVPB Q1HR [facility] Rx#: [id number] Output: Gastric Drainage 900 Urine 600 300 Other: Voiding Method Toilet Toilet Urinal Urinal # Voids 2 - Labs CBC & Chem 7: 09/17/19 11:50 09/17/19 20:07 Labs: Abnormal Lab Results - Last 24 Hours (Table) 09/17/19 09/17/19 09/17/19 Range/Units 05:46 05:46 05:46 Neutrophils # 7.8 H (1.3-7.7) k/uL APTT 43.5 H (22.0-30.0) sec Potassium 3.1 L (3.5-5.1) mmol/L Carbon Dioxide 37 H (22-30) mmol/L BUN 29 H (9-20) mg/dL Calcium 8.1 L (8.4-10.2) mg/dL Magnesium 2.7 H (1.6-2.3) mg/dL Total Protein 5.7 L (6.3-8.2) g/dL Albumin 3.3 L (3.5-5.0) g/dL 09/17/19 Range/Units 11:50 Neutrophils # (1.3-7.7) k/uL APTT (22.0-30.0) sec Potassium 3.2 L (3.5-5.1) mmol/L Carbon Dioxide 38 H (22-30) mmol/L BUN 28 H (9-20) mg/dL Calcium 8.3 L (8.4-10.2) mg/dL Magnesium 2.8 H (1.6-2.3) mg/dL Total Protein (6.3-8.2) g/dL Albumin (3.5-5.0) g/dL Assessment and Plan (1) Ileus Current Visit: Yes Status: Acute Code(s): K56.7 - ILEUS, UNSPECIFIED SNOMED Code(s): 015599484 (2) S/P laparotomy Current Visit: Yes Status: Acute Code(s): Z98.890 - OTHER SPECIFIED POSTPROCEDURAL STATES SNOMED Code(s): 043127927 (3) Hypokalemia Current Visit: Yes Status: Acute Code(s): E87.6 - HYPOKALEMIA SNOMED Code(s): 12259267 (4) Inadequate dietary intake of protein Current Visit: Yes Status: Acute Code(s): E63.9 - NUTRITIONAL DEFICIENCY, UNSPECIFIED SNOMED Code(s): 320758963 (5) Small bowel obstruction Current Visit: Yes Status: Acute Code(s): K56.609 - UNSP INTESTNL OBST, UNSP TO PARTIAL VERSUS COMPLETE OBST SNOMED Code(s): 968841557
[2019-09-17 18:46] LABS: Glucose,Whole Blood 102 mg/dL (75-99)
--- NOTE | 2019-09-17 18:51 | P.PN ---
Subjective Progress Note Date: 09/17/19 Principal diagnosis: Acute small bowel obstruction status post laparotomy with lysis of adhesions with postoperative ileus Sinus tachycardia 09/17/2019 Patient was seen and examined sitting up in bed with NG tube in place. He states overall he is feeling better than he was yesterday however continues to have abdominal swelling and discomfort. Maintained on a heparin infusion. Heparin currently on hold for placement of PIC line for TPN. Blood pressure 132/80 heart rate 108 afebrile maintaining oxygen saturation on nasal cannula. Laboratory data reviewed, WBC 10, hemoglobin 13.8, platelets 254, sodium 144, potassium 3.1, creatinine 0.95, magnesium 2.7. Objective - Vital Signs Vital signs: Vital Signs Temp 98.4 F 09/17/19 07:32 Pulse 108 H 09/17/19 07:32 Resp 18 09/17/19 07:32 BP 132/80 09/17/19 07:32 Pulse Ox 97 09/17/19 01:23 Intake & Output 09/16/19 09/17/19 09/17/19 18:59 06:59 18:59 Intake Total 680 212.083 Output Total 1500 300 Balance 680 -1287.917 -300 Weight 104.326 kg 104.326 kg Intake: Intake, IV Titration 680 212.083 Amount Heparin Sod,Pork in 0.45% 30 212.083 NaCl 25,000 unit In 0.45 % NaCl 1 250ml.bag @ 9. 585 UNITS/KG/HR 10 mls/hr IV .Q24H [facility] Rx#: [id number] Lactated Ringers 1,000 ml 450 @ 150 mls/hr IV .Q6H40M [facility] Rx#:[id number] Piperacillin-Tazobactam 3 100 .375 gm In Sodium Chloride 0.9% 100 ml @ 25 mls/hr IVPB Q8H [facility] Rx#: [id number] Potassium Chloride 10 meq 100 In Water For Injection 1 100ml.bag @ 100 mls/hr IVPB Q1HR [facility] Rx#: [id number] Output: Gastric Drainage 900 Urine 600 300 Other: Voiding Method Toilet Toilet Urinal Urinal # Voids 2 - Exam PHYSICAL EXAMINATION: GENERAL: The patient is alert and oriented x3, not in any acute distress. Well developed, well nourished. HEENT: Pupils are round and equally reacting to light. EOMI. No scleral icterus. No conjunctival pallor. Normocephalic, atraumatic. No pharyngeal erythema. No thyromegaly. CARDIOVASCULAR: S1 and S2 present. No murmurs, rubs, or gallops. PULMONARY: Chest is clear to auscultation, no wheezing or crackles. ABDOMEN: Soft, nontender, nondistended, normoactive bowel sounds. No palpable organomegaly. MUSCULOSKELETAL: No joint swelling or deformity. EXTREMITIES: No cyanosis, clubbing, or pedal edema. NEUROLOGICAL: Gross neurological examination did not reveal any focal deficits. SKIN: No rashes. - Labs CBC & Chem 7: 09/17/19 11:50 09/17/19 11:50 Labs: Abnormal Lab Results - Last 24 Hours (Table) 09/17/19 09/17/19 09/17/19 Range/Units 05:46 05:46 05:46 Neutrophils # 7.8 H (1.3-7.7) k/uL APTT 43.5 H (22.0-30.0) sec Potassium 3.1 L (3.5-5.1) mmol/L Carbon Dioxide 37 H (22-30) mmol/L BUN 29 H (9-20) mg/dL Calcium 8.1 L (8.4-10.2) mg/dL Magnesium 2.7 H (1.6-2.3) mg/dL Total Protein 5.7 L (6.3-8.2) g/dL Albumin 3.3 L (3.5-5.0) g/dL Assessment and Plan Assessment: Acute small bowel obstruction status post laparotomy with lysis of adhesion with postoperative ileus Ileus Sinus tachycardia Leukocytosis Hypokalemia History of coronary artery disease status post stent placement was recently at [facility] April 2019 was maintained on dual antiplatelet therapy prior to surgery Hypertension Dyslipidemia PLAN Continue potassium replacement. Continue heparin infusion until patient is tolerating oral. Aspirin and Plavix to be resumed once he can tolerate.
[2019-09-17] MEDS: INSULIN ASPART (NovoLOG) 100 UNIT/ML VIAL SQ SCH (19:30)
[2019-09-17] MEDS: MELATONIN 1 MG TAB PO SCH (23:00)
[2019-09-18 00:11] LABS: Glucose,Whole Blood 102 mg/dL (75-99)
[2019-09-18] MEDS: INSULIN ASPART (NovoLOG) 100 UNIT/ML VIAL SQ SCH ×5 (00:47→23:56)
[2019-09-18] MEDS: POTASSIUM CHLORIDE 20 MEQ in WATER FOR INJECTION 1 100ML.BAG IVPB SCH ×4 (02:27→11:35)
[2019-09-18] MEDS: HEPARIN SOD,PORK IN 0.45% NACL 25,000 UNIT in 0.45% NACL 1 250ML.BAG IV SCH ×2 (04:22→19:34)
[2019-09-18] MEDS: PIPERACILLIN-TAZOBACTAM 3.375 GM in SODIUM CHLORIDE 0.9% 100 ML IVPB SCH ×2 (04:23→15:13)
[2019-09-18] MEDS: LEVOTHYROXINE 50 MCG TAB PO SCH (06:00)
[2019-09-18] MEDS: METOCLOPRAMIDE 5 MG/ML 2 ML VIAL IVP SCH ×4 (06:00→23:57)
[2019-09-18 06:35] LABS: HCT 42.5 % (39.0-53.0); HGB 13.9 gm/dL (13.0-17.5); MCH 28.6 pg (25.0-35.0); MCHC 32.7 g/dL (31.0-37.0); MCV 87.4 fL (80.0-100.0); Mean Platelet Volume 7.5; Platelet Count 259 k/uL (150-450); RBC 4.87 m/uL (4.30-5.90); RDW 12.9 % (11.5-15.5); WBC 11.5 k/uL (3.8-10.6)
[2019-09-18 06:42] LABS: Ionized Calcium 4.7 mg/dL (4.5-5.3)
[2019-09-18 06:47] LABS: ALT 16 U/L (4-49); AST 29 U/L (17-59); African American GFR (CKD) >90 (>60 ml/min/1.73 sqM); Albumin 3.4 g/dL (3.5-5.0); Alkaline Phosphatase 70 U/L (38-126); Anion Gap 5 mmol/L; Blood Urea Nitrogen 24 mg/dL (9-20); Calcium 8.5 mg/dL (8.4-10.2); Carbon Dioxide 38 mmol/L (22-30); Chloride 100 mmol/L (98-107); Glucose 105 mg/dL (74-99); Magnesium 2.6 mg/dL (1.6-2.3); Non-African American GFR(CKD) 87 (>60 ml/min/1.73 sqM); Phosphorus 3.1 mg/dL (2.5-4.5); Potassium 3.4 mmol/L (3.5-5.1); Sodium 143 mmol/L (137-145); Total Bilirubin 0.8 mg/dL (0.2-1.3); Total Protein 5.8 g/dL (6.3-8.2); Triglycerides 128 mg/dL (<150)
[2019-09-18 07:12] LABS: Band Neutrophils % 19 %; Eosinophils # (M) 0.23 k/uL (0-0.7); Lymphocytes # (M) 1.04 k/uL (1.0-4.8); Metamyelocytes # (M) 0.69 k/uL (0); Metamyelocytes % 6 %; Monocytes # (M) 0.69 k/uL (0-1.0); Neutrophils % (M) 58 %; Nucleated Red Blood Cells 0 /100 WBC (0-0); Total Cells Counted 200
[2019-09-18 07:13] LABS: Toxic Granulation Present; Toxic Vacuolation Present
[2019-09-18] MEDS: LISINOPRIL 5 MG TAB PO SCH (07:40)
[2019-09-18] MEDS: CLOPIDOGREL 75 MG TAB PO SCH (07:40)
[2019-09-18] MEDS: METOPROLOL SUCCINATE (ER) 25 MG TAB.ER.24H PO SCH (07:40)
[2019-09-18] MEDS: ASPIRIN 81 MG PO SCH (07:40)
[2019-09-18] MEDS: ATORVASTATIN 80 MG TAB PO SCH (07:40)
[2019-09-18] MEDS: HEPARIN SODIUM,PORCINE 5,000 UNIT/ML 1 ML VIAL IV PRN (07:42)
[2019-09-18] MEDS: HYDROmorphone 0.5 MG/0.5 ML SYRINGE IVP PRN ×3 (08:54→19:33)
[2019-09-18 12:13] LABS: Glucose,Whole Blood 99 mg/dL (75-99)
[2019-09-18] MEDS ORDERED: 1: MVI, ADULT NO.4 WITH VIT K 10 ML, TRACE (CONC-1ML/DOSE) 1 ML, SODIUM ACETATE 30 MEQ, IV SCH ×6 (14:00)
[2019-09-18] MEDS: FAT EMULSION 20% 250 ML IV SCH (14:11)
--- NOTE | 2019-09-18 15:07 | P.PN ---
Subjective Progress Note Date: 09/18/19 CHIEF COMPLAINT: Small bowel obstruction HISTORY OF PRESENT ILLNESS: The patient is a 59-year-old status post exploratory laparotomy and lysis of adhesions. He had severe post-op ileus now resolving. Nasogastric tube still present. Denies any abdominal pain. His passing flatus. Having bowel movements. He has been nothing by mouth status beyond 3+ days. He is on TPN. PICC line placed yesterday. ROS: No fevers or chills. No new chest pain. No nausea or vomiting PHYSICAL EXAM: VITAL SIGNS: Reviewed CONSTITUTIONAL: Well developed and in no acute distress. EYES: Conjuctivae without sclera icterus. Extraocular movements grossly intact. HEAD, EARS, NOSE, THROAT: Moist buccal mucosa. Head is atraumatic, normocephalic. Hears conversational speech. NGT present with dark blood NECK: Supple. RESPIRATORY: Non-labored respirations and equal bilateral excursions. CARDIOVASCULAR: Palpable 2+ radial pulses. ABDOMEN: Soft. No peritonitis. MUSCULOSKELETAL: No gross deformity of the lower extremities noted. No clubbing. No cyanosis. SKIN: Good skin turgor. Well perfused. NEUROLOGIC: Cranial nerves I through XII grossly intact. No focal or lateralizing signs. PSYCH: Alert and oriented to person, place and time. Appropriate affect CLINICAL LABS: WBC now up to 11,500 from 9,200 ASSESSMENT: 1. Small bowel obstruction 2. S/p lysis of adhesions 3. Ileus 4. Inadequate protein intake 5. Hypokalemia 6. Gastritis with bleeding PLAN: 1. Continue TPN. 2. May have ice chips. May have popsicles. 3. Start Protonix for acute gastritis Objective - Vital Signs Vital signs: Vital Signs Temp 99.4 F 09/18/19 07:01 Pulse 94 09/18/19 07:01 Resp 16 09/18/19 07:01 BP 139/86 09/18/19 07:01 Pulse Ox 97 09/18/19 01:55 Intake & Output 09/17/19 09/18/19 09/18/19 18:59 06:59 18:59 Intake Total 5840.312 9133.123 162.778 Output Total 300 1000 Balance 700.253 1925.123 162.778 Weight 104.326 kg Intake: IV 3210 Fat Emulsion 20% 250 ml @ 250 20.833 mls/hr IV DAILY@ 1400 [facility] Rx#:[id number] Lactated Ringers 1,000 ml 2400 @ 150 mls/hr IV .Q6H40M [facility] Rx#:[id number] Mvi, Adult No.4 with Vit 360 K 10 ml Trace (Conc-1Ml/ Dose) 1 ml Sodium Acetate 30 meq Potassium Chloride 40 meq Calcium Gluconate 1 gm In Amino Acid 5%-D15w 1,000 ml @ 30 mls/hr IV .Q24H [facility] Rx #:[id number] Piperacillin-Tazobactam 3 200 .375 gm In Sodium Chloride 0.9% 100 ml @ 25 mls/hr IVPB Q8H [facility] Rx#: [id number] Intake, IV Titration 1286.877 163.123 162.778 Amount Heparin Sod,Pork in 0.45% 86.877 163.123 162.778 NaCl 25,000 unit In 0.45 % NaCl 1 250ml.bag @ 9. 585 UNITS/KG/HR 10 mls/hr IV .Q24H [facility] Rx#: [id number] Lactated Ringers 1,000 ml 1200 @ 150 mls/hr IV .Q6H40M [facility] Rx#:[id number] Output: Urine 300 Emesis 1000 Other: # Voids 2 - Labs CBC & Chem 7: 09/18/19 05:55 09/18/19 05:55 Labs: Abnormal Lab Results - Last 24 Hours (Table) 09/17/19 09/17/19 09/17/19 Range/Units 18:34 20:07 22:19 WBC (3.8-10.6) k/uL Neutrophils # (Manual) (1.3-7.7) k/uL Metamyelocytes # (Man) (0) k/uL APTT 50.2 H (22.0-30.0) sec Potassium 3.0 L (3.5-5.1) mmol/L Carbon Dioxide (22-30) mmol/L BUN (9-20) mg/dL Glucose (74-99) mg/dL POC Glucose (mg/dL) 102 H (75-99) mg/dL Magnesium (1.6-2.3) mg/dL Total Protein (6.3-8.2) g/dL Albumin (3.5-5.0) g/dL 09/17/19 09/18/19 09/18/19 Range/Units 23:59 05:55 05:55 WBC 11.5 H (3.8-10.6) k/uL Neutrophils # (Manual) 8.80 H (1.3-7.7) k/uL Metamyelocytes # (Man) 0.69 H (0) k/uL APTT (22.0-30.0) sec Potassium 3.4 L (3.5-5.1) mmol/L Carbon Dioxide 38 H (22-30) mmol/L BUN 24 H (9-20) mg/dL Glucose 105 H (74-99) mg/dL POC Glucose (mg/dL) 102 H (75-99) mg/dL Magnesium 2.6 H (1.6-2.3) mg/dL Total Protein 5.8 L (6.3-8.2) g/dL Albumin 3.4 L (3.5-5.0) g/dL 09/18/19 09/18/19 Range/Units 05:55 12:19 WBC (3.8-10.6) k/uL Neutrophils # (Manual) (1.3-7.7) k/uL Metamyelocytes # (Man) (0) k/uL APTT 41.4 H 65.2 H (22.0-30.0) sec Potassium (3.5-5.1) mmol/L Carbon Dioxide (22-30) mmol/L BUN (9-20) mg/dL Glucose (74-99) mg/dL POC Glucose (mg/dL) (75-99) mg/dL Magnesium (1.6-2.3) mg/dL Total Protein (6.3-8.2) g/dL Albumin (3.5-5.0) g/dL Assessment and Plan (1) Ileus Current Visit: Yes Status: Acute Code(s): K56.7 - ILEUS, UNSPECIFIED SNOME D Code(s): 202561585 (2) S/P laparotomy Current Visit: Yes Status: Acute Code(s): Z98.890 - OTHER SPECIFIED POSTPROCEDURAL STATES SNOMED Code(s): 010078134 (3) Hypokalemia Current Visit: Yes Status: Acute Code(s): E87.6 - HYPOKALEMIA SNOMED Code(s): 96521380 (4) Inadequate dietary intake of protein Current Visit: Yes Status: Acute Code(s): E63.9 - NUTRITIONAL DEFICIENCY, UNSPECIFIED SNOMED Code(s): 118048167 (5) Small bowel obstruction Current Visit: Yes Status: Acute Code(s): K56.609 - UNSP INTESTNL OBST, UNSP TO PARTIAL VERSUS COMPLETE OBST SNOMED Code(s): 811562812 (6) Gastritis with bleeding Current Visit: Yes Status: Acute Code(s): K29.71 - GASTRITIS, UNSPECIFIED, WITH BLEEDING SNOMED Code(s): 1927533
[2019-09-18] MEDS: PANTOPRAZOLE 40 MG/10 ML VIAL IVP SCH ×2 (15:23→23:54)
--- NOTE | 2019-09-18 16:08 | P.PN ---
Subjective Progress Note Date: 09/18/19 Patient currently resting comfortably in bed with NG tube in place. He states it was clamped for several hours and is currently draining dark brown. He denies any chest pain, chest pressure, palpitations, dyspnea, dizziness, or vertigo. Overall he states he is feeling much better today and his abdominal discomfort has improved. He is curious as to when he'll resume his aspirin and Plavix and stop the heparin drip. We discussed that he must be able to tolerate oral fluids and his belt structure must resolve before resuming oral medications. GENERAL: Well-appearing, well-nourished and in no acute distress. NECK: Supple without JVD or thyromegaly. LUNGS: Breath sounds clear to auscultation bilaterally. Respiration equal and unlabored. No wheezes, rales or rhonchi. HEART: Regular rate and rhythm without murmurs, rubs or gallops. S1 and S2 heard. Tachycardic. EXTREMITIES: Normal range of motion, no edema. No clubbing or cyanosis. Peripheral pulses intact and strong. Labs: WBC 11.5, hemoglobin 13.9, hematocrit 42.5, platelet 259, sodium 143, potassium 3.4, BUN 24, creatinine 0.95, phosphorus 3.1, magnesium 2.6, triglycerides 128 Impression: #1 acute small bowel obstruction status post laparotomy with lysis of adhesions #2 postoperative ileus #3 sinus tachycardia #4 hypokalemia #5 history of coronary artery disease, most recent stent placed April 2019 #6 hypertension #7 dyslipidemia Plan: Continue potassium replacement. Continue heparin infusion until patient is tolerating oral fluids and medications. Aspirin and Plavix to person once he can tolerate. We will follow on an as-needed basis. Objective - Vital Signs Vital signs: Vital Signs Temp 99.4 F 09/18/19 07:01 Pulse 94 09/18/19 07:01 Resp 16 09/18/19 07:01 BP 139/86 09/18/19 07:01 Pulse Ox 97 09/18/19 01:55 Intake & Output 09/17/19 09/18/19 09/18/19 18:59 06:59 18:59 Intake Total 2114.210 6678.123 162.778 Output Total 300 1000 Balance 361.332 3784.123 162.778 Weight 104.326 kg Intake: IV 3210 Fat Emulsion 20% 250 ml @ 250 20.833 mls/hr IV DAILY@ 1400 [facility] Rx#:[id number] Lactated Ringers 1,000 ml 2400 @ 150 mls/hr IV .Q6H40M [facility] Rx#:[id number] Mvi, Adult No.4 with Vit 360 K 10 ml Trace (Conc-1Ml/ Dose) 1 ml Sodium Acetate 30 meq Potassium Chloride 40 meq Calcium Gluconate 1 gm In Amino Acid 5%-D15w 1,000 ml @ 30 mls/hr IV .Q24H [facility] Rx #:[id number] Piperacillin-Tazobactam 3 200 .375 gm In Sodium Chloride 0.9% 100 ml @ 25 mls/hr IVPB Q8H [facility] Rx#: [id number] Intake, IV Titration 1286.877 163.123 162.778 Amount Heparin Sod,Pork in 0.45% 86.877 163.123 162.778 NaCl 25,000 unit In 0.45 % NaCl 1 250ml.bag @ 9. 585 UNITS/KG/HR 10 mls/hr IV .Q24H [facility] Rx#: [id number] Lactated Ringers 1,000 ml 1200 @ 150 mls/hr IV .Q6H40M [facility] Rx#:[id number] Output: Urine 300 Emesis 1000 Other: # Voids 2 - Labs CBC & Chem 7: 09/18/19 05:55 09/18/19 05:55 Labs: Abnormal Lab Results - Last 24 Hours (Table) 09/17/19 09/17/19 09/17/19 Range/Units 18:34 20:07 22:19 WBC (3.8-10.6) k/uL Neutrophils # (Manual) (1.3-7.7) k/uL Metamyelocytes # (Man) (0) k/uL APTT 50.2 H (22.0-30.0) sec Potassium 3.0 L (3.5-5.1) mmol/L Carbon Dioxide (22-30) mmol/L BUN (9-20) mg/dL Glucose (74-99) mg/dL POC Glucose (mg/dL) 102 H (75-99) mg/dL Magnesium (1.6-2.3) mg/dL Total Protein (6.3-8.2) g/dL Albumin (3.5-5.0) g/dL 09/17/19 09/18/19 09/18/19 Range/Units 23:59 05:55 05:55 WBC 11.5 H (3.8-10.6) k/uL Neutrophils # (Manual) 8.80 H (1.3-7.7) k/uL Metamyelocytes # (Man) 0.69 H (0) k/uL APTT (22.0-30.0) sec Potassium 3.4 L (3.5-5.1) mmol/L Carbon Dioxide 38 H (22-30) mmol/L BUN 24 H (9-20) mg/dL Glucose 105 H (74-99) mg/dL POC Glucose (mg/dL) 102 H (75-99) mg/dL Magnesium 2.6 H (1.6-2.3) mg/dL Total Protein 5.8 L (6.3-8.2) g/dL Albumin 3.4 L (3.5-5.0) g/dL 09/18/19 09/18/19 Range/Units 05:55 12:19 WBC (3.8-10.6) k/uL Neutrophils # (Manual) (1.3-7.7) k/uL Metamyelocytes # (Man) (0) k/uL APTT 41.4 H 65.2 H (22.0-30.0) sec Potassium (3.5-5.1) mmol/L Carbon Dioxide (22-30) mmol/L BUN (9-20) mg/dL Glucose (74-99) mg/dL POC Glucose (mg/dL) (75-99) mg/dL Magnesium (1.6-2.3) mg/dL Total Protein (6.3-8.2) g/dL Albumin (3.5-5.0) g/dL
--- NOTE | 2019-09-18 16:32 | P.PN ---
Subjective Progress Note Date: 09/18/19 Principal diagnosis: Acute small bowel obstruction status post laparotomy with lysis of adhesions with postoperative ileus Sinus tachycardia 09/17/2019 Patient was seen and examined sitting up in bed with NG tube in place. He states overall he is feeling better than he was yesterday however continues to have abdominal swelling and discomfort. Maintained on a heparin infusion. Heparin currently on hold for placement of PIC line for TPN. Blood pressure 132/80 heart rate 108 afebrile maintaining oxygen saturation on nasal cannula. Laboratory data reviewed, WBC 10, hemoglobin 13.8, platelets 254, sodium 144, potassium 3.1, creatinine 0.95, magnesium 2.7. 09/18/2019 Patient is seen and evaluated in room with family members at bedside; NG tube in with intermittent suctioning; patient is status post PICC line placement and TPN has been started; patient is started on Protonix for acute gastritis and is cleared for ice chips and popsicles; blood work reveals low potassium level of 3.4 which is supplemented; patient remains on IV heparin. Able to tolerate oral intake; continue to hold aspirin and Plavix Objective - Vital Signs Vital signs: Vital Signs Temp 99.4 F 09/18/19 07:01 Pulse 94 09/18/19 07:01 Resp 16 09/18/19 07:01 BP 139/86 09/18/19 07:01 Pulse Ox 97 09/18/19 01:55 Intake & Output 09/17/19 09/18/19 09/18/19 18:59 06:59 18:59 Intake Total 9179.644 4314.123 53.333 Output Total 300 1000 Balance 806.509 6902.123 53.333 Weight 104.326 kg Intake: IV 3210 Fat Emulsion 20% 250 ml @ 250 20.833 mls/hr IV DAILY@ 1400 [facility] Rx#:[id number] Lactated Ringers 1,000 ml 2400 @ 150 mls/hr IV .Q6H40M [facility] Rx#:[id number] Mvi, Adult No.4 with Vit 360 K 10 ml Trace (Conc-1Ml/ Dose) 1 ml Sodium Acetate 30 meq Potassium Chloride 40 meq Calcium Gluconate 1 gm In Amino Acid 5%-D15w 1,000 ml @ 30 mls/hr IV .Q24H [facility] Rx #:[id number] Piperacillin-Tazobactam 3 200 .375 gm In Sodium Chloride 0.9% 100 ml @ 25 mls/hr IVPB Q8H [facility] Rx#: [id number] Intake, IV Titration 1286.877 163.123 53.333 Amount Heparin Sod,Pork in 0.45% 86.877 163.123 53.333 NaCl 25,000 unit In 0.45 % NaCl 1 250ml.bag @ 9. 585 UNITS/KG/HR 10 mls/hr IV .Q24H [facility] Rx#: [id number] Lactated Ringers 1,000 ml 1200 @ 150 mls/hr IV .Q6H40M [facility] Rx#:[id number] Output: Urine 300 Emesis 1000 Other: # Voids 2 - Exam PHYSICAL EXAMINATION: GENERAL: The patient is alert and oriented x3, not in any acute distress. Well developed, well nourished. HEENT: Pupils are round and equally reacting to light. EOMI. No scleral icterus. No conjunctival pallor. Normocephalic, atraumatic. No pharyngeal erythema. No thyromegaly. CARDIOVASCULAR: S1 and S2 present. No murmurs, rubs, or gallops. PULMONARY: Chest is clear to auscultation, no wheezing or crackles. ABDOMEN: Soft, nontender, nondistended, normoactive bowel sounds. No palpable organomegaly. MUSCULOSKELETAL: No joint swelling or deformity. EXTREMITIES: No cyanosis, clubbing, or pedal edema. NEUROLOGICAL: Gross neurological examination did not reveal any focal deficits. SKIN: No rashes. - Labs CBC & Chem 7: 09/18/19 05:55 09/18/19 05:55 Labs: Abnormal Lab Results - Last 24 Hours (Table) 09/17/19 09/17/19 09/17/19 Range/Units 11:50 18:34 20:07 WBC (3.8-10.6) k/uL Neutrophils # (Manual) (1.3-7.7) k/uL Metamyelocytes # (Man) (0) k/uL APTT (22.0-30.0) sec Potassium 3.2 L 3.0 L (3.5-5.1) mmol/L Carbon Dioxide 38 H (22-30) mmol/L BUN 28 H (9-20) mg/dL Glucose (74-99) mg/dL POC Glucose (mg/dL) 102 H (75-99) mg/dL Calcium 8.3 L (8.4-10.2) mg/dL Magnesium 2.8 H (1.6-2.3) mg/dL Total Protein (6.3-8.2) g/dL Albumin (3.5-5.0) g/dL 09/17/19 09/17/19 09/18/19 Range/Units 22:19 23:59 05:55 WBC 11.5 H (3.8-10.6) k/uL Neutrophils # (Manual) 8.80 H (1.3-7.7) k/uL Metamyelocytes # (Man) 0.69 H (0) k/uL APTT 50.2 H (22.0-30.0) sec Potassium (3.5-5.1) mmol/L Carbon Dioxide (22-30) mmol/L BUN (9-20) mg/dL Glucose (74-99) mg/dL POC Glucose (mg/dL) 102 H (75-99) mg/dL Calcium (8.4-10.2) mg/dL Magnesium (1.6-2.3) mg/dL Total Protein (6.3-8.2) g/dL Albumin (3.5-5.0) g/dL 09/18/19 09/18/19 Range/Units 05:55 05:55 WBC (3.8-10.6) k/uL Neutrophils # (Manual) (1.3-7.7) k/uL Metamyelocytes # (Man) (0) k/uL APTT 41.4 H (22.0-30.0) sec Potassium 3.4 L (3.5-5.1) mmol/L Carbon Dioxide 38 H (22-30) mmol/L BUN 24 H (9-20) mg/dL Glucose 105 H (74-99) mg/dL POC Glucose (mg/dL) (75-99) mg/dL Calcium (8.4-10.2) mg/dL Magnesium 2.6 H (1.6-2.3) mg/dL Total Protein 5.8 L (6.3-8.2) g/dL Albumin 3.4 L (3.5-5.0) g/dL Assessment and Plan Assessment: Acute small bowel obstruction status post laparotomy with lysis of adhesion with postoperative ileus Ileus Sinus tachycardia Leukocytosis Hypokalemia History of coronary artery disease status post stent placement was recently at [facility] April 2019 was maintained on dual antiplatelet therapy prior to surgery Hypertension Dyslipidemia PLAN Continue potassium replacement. Continue heparin infusion until patient is tolerating oral. Aspirin and Plavix to be resumed once he can tolerate.
[2019-09-18 18:50] LABS: Glucose,Whole Blood 120 mg/dL (75-99)
[2019-09-18] MEDS: LACTATED RINGERS 1,000 ML IV SCH ×2 (19:44→19:45)
[2019-09-18] MEDS ORDERED: PANTOPRAZOLE 40 MG/10 ML VIAL IVP SCH (21:00)
[2019-09-18] MEDS: MELATONIN 1 MG TAB PO SCH (21:13)
[2019-09-18] MEDS ORDERED: Potassium Replacement Protocol 1 EACH MISC MISCELLANE PRN (23:21)
[2019-09-18] MEDS: POTASSIUM CHLORIDE 10 MEQ in WATER FOR INJECTION 1 100ML.BAG IVPB SCH (23:55)
[2019-09-19 00:05] LABS: Glucose,Whole Blood 112 mg/dL (75-99)
[2019-09-19] MEDS: POTASSIUM CHLORIDE 10 MEQ in WATER FOR INJECTION 1 100ML.BAG IVPB SCH ×3 (02:16→05:37)
[2019-09-19] MEDS: LACTATED RINGERS 1,000 ML IV SCH ×3 (02:56→16:30)
[2019-09-19] MEDS: METOCLOPRAMIDE 5 MG/ML 2 ML VIAL IVP SCH ×3 (05:46→17:21)
[2019-09-19] MEDS: LEVOTHYROXINE 50 MCG TAB PO SCH (05:46)
[2019-09-19] MEDS: INSULIN ASPART (NovoLOG) 100 UNIT/ML VIAL SQ SCH ×3 (06:04→17:21)
[2019-09-19 06:10] LABS: Glucose,Whole Blood 116 mg/dL (75-99)
[2019-09-19 07:32] LABS: African American GFR (CKD) >90 (>60 ml/min/1.73 sqM); Anion Gap 7 mmol/L; Blood Urea Nitrogen 20 mg/dL (9-20); Calcium 8.2 mg/dL (8.4-10.2); Carbon Dioxide 30 mmol/L (22-30); Chloride 104 mmol/L (98-107); Glucose 100 mg/dL (74-99); Magnesium 2.1 mg/dL (1.6-2.3); Non-African American GFR(CKD) >90 (>60 ml/min/1.73 sqM); Phosphorus 3.7 mg/dL (2.5-4.5); Potassium 3.8 mmol/L (3.5-5.1); Sodium 141 mmol/L (137-145)
[2019-09-19 07:56] LABS: HCT 40.6 % (39.0-53.0); HGB 12.9 gm/dL (13.0-17.5); MCHC 31.8 g/dL (31.0-37.0); MCV 88.1 fL (80.0-100.0); Mean Platelet Volume 7.8; Platelet Count 266 k/uL (150-450); RBC 4.61 m/uL (4.30-5.90); RDW 12.9 % (11.5-15.5); WBC 11.7 k/uL (3.8-10.6)
[2019-09-19 08:47] LABS: Band Neutrophils % 1 %; Eosinophils # (M) 0.12 k/uL (0-0.7); Lymphocytes # (M) 2.11 k/uL (1.0-4.8); Metamyelocytes # (M) 0.12 k/uL (0); Metamyelocytes % 1 %; Myelocytes # (M) 0.23 k/uL (0); Myelocytes % 2 %; Neutrophils % (M) 73 %; Nucleated Red Blood Cells 0 /100 WBC (0-0); Total Cells Counted 200
[2019-09-19] MEDS: METOPROLOL SUCCINATE (ER) 25 MG TAB.ER.24H PO SCH (09:53)
[2019-09-19] MEDS: ATORVASTATIN 80 MG TAB PO SCH (09:54)
[2019-09-19] MEDS: PANTOPRAZOLE 40 MG/10 ML VIAL IVP SCH (09:54)
[2019-09-19] MEDS: LISINOPRIL 5 MG TAB PO SCH (09:54)
[2019-09-19] MEDS ORDERED: POTASSIUM CHLORIDE 20 MEQ in WATER FOR INJECTION 1 100ML.BAG IVPB ONE (10:00)
[2019-09-19] MEDS: HEPARIN SOD,PORK IN 0.45% NACL 25,000 UNIT in 0.45% NACL 1 250ML.BAG IV SCH (10:20)
[2019-09-19] MEDS: ASPIRIN 81 MG PO SCH (11:55)
[2019-09-19] MEDS: CLOPIDOGREL 75 MG TAB PO SCH (11:55)
[2019-09-19 12:01] LABS: Glucose,Whole Blood 110 mg/dL (75-99)
--- NOTE | 2019-09-19 13:27 | P.PN ---
Subjective Progress Note Date: 09/19/19 CHIEF COMPLAINT: Small bowel obstruction HISTORY OF PRESENT ILLNESS: The patient is a 59-year-old status post exploratory laparotomy and lysis of adhesions. He had severe post-op ileus with moderate improvement. He is on TPN. No nausea or vomiting. Since start of Protoni, gastritis resolved. He reports intolerance to Plavix and aspirin oral without his Omeprazole. He is tolerating ice chips and popsicles. ROS: No fevers or chills. No new chest pain. No nausea or vomiting PHYSICAL EXAM: VITAL SIGNS: Reviewed CONSTITUTIONAL: Well developed and in no acute distress. EYES: Conjuctivae without sclera icterus. Extraocular movements grossly intact. HEAD, EARS, NOSE, THROAT: Moist buccal mucosa. Head is atraumatic, normocephalic. Hears conversational speech. NGT present with clear bile. I personally clamped his NGT. NECK: Supple. RESPIRATORY: Non-labored respirations and equal bilateral excursions. CARDIOVASCULAR: Palpable 2+ radial pulses. ABDOMEN: Soft. No peritonitis. Incisions clean, dry, and intact. MUSCULOSKELETAL: No gross deformity of the lower extremities noted. No clubbing. No cyanosis. SKIN: Good skin turgor. Well perfused. NEUROLOGIC: Cranial nerves I through XII grossly intact. No focal or lateralizing signs. PSYCH: Alert and oriented to person, place and time. Appropriate affect CLINICAL LABS: WBC stable ASSESSMENT: 1. Small bowel obstruction 2. S/p lysis of adhesions 3. Ileus 4. Inadequate protein intake 5. Hypokalemia 6. Gastritis with bleeding PLAN: 1. NGT disconnected 2. Start clear liquid diet. 3. Change to oral PPIs 4. Repeat Xray of the abdomen for the morning. Objective - Vital Signs Vital signs: Vital Signs Temp 98.6 F 09/18/19 23:51 Pulse 102 H 09/18/19 23:51 Resp 18 09/19/19 08:00 BP 123/81 09/18/19 23:51 Pulse Ox 95 09/18/19 23:51 Intake & Output 09/18/19 09/19/19 09/19/19 18:59 06:59 18:59 Intake Total 1390.000 250.000 Balance 1390.000 250.000 Intake: IV 1040 Lactated Ringers 1,000 ml 800 @ 150 mls/hr IV .Q6H40M [facility] Rx#:[id number] Mvi, Adult No.4 with Vit 240 K 10 ml Trace (Conc-1Ml/ Dose) 1 ml Sodium Acetate 30 meq Potassium Chloride 40 meq Calcium Gluconate 1 gm In Amino Acid 5%-D15w 1,000 ml @ 30 mls/hr IV .Q24H [facility] Rx #:[id number] Intake, IV Titration 350.000 250.000 Amount Heparin Sod,Pork in 0.45% 250.000 250.000 NaCl 25,000 unit In 0.45 % NaCl 1 250ml.bag @ 9. 585 UNITS/KG/HR 10 mls/hr IV .Q24H [facility] Rx#: [id number] Potassium Chloride 20 meq 100 In Water For Injection 1 100ml.bag @ 50 mls/hr IVPB Q2H [facility] Rx#: [id number] Other: Voiding Method Toilet Toilet Urinal Urinal # Voids 1 - Labs CBC & Chem 7: 09/19/19 06:30 09/19/19 07:49 Labs: Abnormal Lab Results - Last 24 Hours (Table) 09/18/19 09/18/19 09/18/19 Range/Units 18:39 19:40 23:53 WBC (3.8-10.6) k/uL Hgb (13.0-17.5) gm/dL Neutrophils # (Manual) (1.3-7.7) k/uL Metamyelocytes # (Man) (0) k/uL Myelocytes # (Manual) (0) k/uL APTT (22.0-30.0) sec Potassium 3.4 L (3.5-5.1) mmol/L Glucose (74-99) mg/dL POC Glucose (mg/dL) 120 H 112 H (75-99) mg/dL Calcium (8.4-10.2) mg/dL 09/19/19 09/19/19 09/19/19 Range/Units 05:59 06:30 06:30 WBC 11.7 H (3.8-10.6) k/uL Hgb 12.9 L (13.0-17.5) gm/dL Neutrophils # (Manual) 8.60 H (1.3-7.7) k/uL Metamyelocytes # (Man) 0.12 H (0) k/uL Myelocytes # (Manual) 0.23 H (0) k/uL APTT (22.0-30.0) sec Potassium (3.5-5.1) mmol/L Glucose 100 H (74-99) mg/dL POC Glucose (mg/dL) 116 H (75-99) mg/dL Calcium 8.2 L (8.4-10.2) mg/dL 09/19/19 09/19/19 Range/Units 06:30 11:50 WBC (3.8-10.6) k/uL Hgb (13.0-17.5) gm/dL Neutrophils # (Manual) (1.3-7.7) k/uL Metamyelocytes # (Man) (0) k/uL Myelocytes # (Manual) (0) k/uL APTT 64.3 H (22.0-30.0) sec Potassium (3.5-5.1) mmol/L Glucose (74-99) mg/dL POC Glucose (mg/dL) 110 H (75-99) mg/dL Calcium (8.4-10.2) mg/dL Assessment and Plan (1) Ileus Current Visit: Yes Status: Acute Code(s): K56.7 - ILEUS, UNSPECIFIED SNOME D Code(s): 723978631 (2) S/P laparotomy Current Visit: Yes Status: Acute Code(s): Z98.890 - OTHER SPECIFIED POSTPROCEDURAL STATES SNOMED Code(s): 203921374 (3) Hypokalemia Current Visit: Yes Status: Acute Code(s): E87.6 - HYPOKALEMIA SNOMED Code(s): 33820732 (4) Inadequate dietary intake of protein Current Visit: Yes Status: Acute Code(s): E63.9 - NUTRITIONAL DEFICIENCY, UNSPECIFIED SNOMED Code(s): 848111175 (5) Small bowel obstruction Current Visit: Yes Status: Acute Code(s): K56.609 - UNSP INTESTNL OBST, UNSP TO PARTIAL VERSUS COMPLETE OBST SNOMED Code(s): 327130806 (6) Gastritis with bleeding Current Visit: Yes Status: Acute Code(s): K29.71 - GASTRITIS, UNSPECIFIED, WITH BLEEDING SNOMED Code(s): 0562723
[2019-09-19] MEDS: FAT EMULSION 20% 250 ML IV SCH (14:23)
--- NOTE | 2019-09-19 15:40 | P.PN ---
Subjective Progress Note Date: 09/19/19 Principal diagnosis: Acute small bowel obstruction status post laparotomy with lysis of adhesions with postoperative ileus Sinus tachycardia 09/17/2019 Patient was seen and examined sitting up in bed with NG tube in place. He states overall he is feeling better than he was yesterday however continues to have abdominal swelling and discomfort. Maintained on a heparin infusion. Heparin currently on hold for placement of PIC line for TPN. Blood pressure 132/80 heart rate 108 afebrile maintaining oxygen saturation on nasal cannula. Laboratory data reviewed, WBC 10, hemoglobin 13.8, platelets 254, sodium 144, potassium 3.1, creatinine 0.95, magnesium 2.7. 09/18/2019 Patient is seen and evaluated in room with family members at bedside; NG tube in with intermittent suctioning; patient is status post PICC line placement and TPN has been started; patient is started on Protonix for acute gastritis and is cleared for ice chips and popsicles; blood work reveals low potassium level of 3.4 which is supplemented; patient remains on IV heparin. Able to tolerate oral intake; continue to hold aspirin and Plavix 09/19/2019 Patient is seen and evaluated at bedside; continues to have NG tube down with intermittent suctioning; patient reports having NG tube clamped multiple times since yesterday; patient is status post exploratory laparotomy and lysis of adhesions with NG tube for severe. Ileus; patient has been started on TPN and denies any nausea vomiting and has been having small bowel movements; patient reports he feels he will be able to tolerate oral Plavix and aspirin since she has been started on oral Protonix; IV heparin has been discontinued; surgery is following and NG tube has been disconnected and is started on clear liquid diet; plan is to repeat abdominal x-ray in the morning and further recommendations will be placed Objective - Vital Signs Vital signs: Vital Signs Temp 98.6 F 09/18/19 23:51 Pulse 102 H 09/18/19 23:51 Resp 18 09/19/19 00:00 BP 123/81 09/18/19 23:51 Pulse Ox 95 09/18/19 23:51 Intake & Output 09/18/19 09/19/19 09/19/19 18:59 06:59 18:59 Intake Total 1390.000 250.000 Balance 1390.000 250.000 Intake: IV 1040 Lactated Ringers 1,000 ml 800 @ 150 mls/hr IV .Q6H40M [facility] Rx#:[id number] Mvi, Adult No.4 with Vit 240 K 10 ml Trace (Conc-1Ml/ Dose) 1 ml Sodium Acetate 30 meq Potassium Chloride 40 meq Calcium Gluconate 1 gm In Amino Acid 5%-D15w 1,000 ml @ 30 mls/hr IV .Q24H [facility] Rx #:[id number] Intake, IV Titration 350.000 250.000 Amount Heparin Sod,Pork in 0.45% 250.000 250.000 NaCl 25,000 unit In 0.45 % NaCl 1 250ml.bag @ 9. 585 UNITS/KG/HR 10 mls/hr IV .Q24H [facility] Rx#: [id number] Potassium Chloride 20 meq 100 In Water For Injection 1 100ml.bag @ 50 mls/hr IVPB Q2H [facility] Rx#: [id number] Other: Voiding Method Toilet Urinal # Voids 1 - Exam PHYSICAL EXAMINATION: GENERAL: The patient is alert and oriented x3, not in any acute distress. Well developed, well nourished. HEENT: Pupils are round and equally reacting to light. EOMI. No scleral icterus. No conjunctival pallor. Normocephalic, atraumatic. No pharyngeal erythema. No thyromegaly. CARDIOVASCULAR: S1 and S2 present. No murmurs, rubs, or gallops. PULMONARY: Chest is clear to auscultation, no wheezing or crackles. ABDOMEN: Soft, nontender, nondistended, normoactive bowel sounds. No palpable organomegaly. MUSCULOSKELETAL: No joint swelling or deformity. EXTREMITIES: No cyanosis, clubbing, or pedal edema. NEUROLOGICAL: Gross neurological examination did not reveal any focal deficits. SKIN: No rashes. - Labs CBC & Chem 7: 09/19/19 06:30 09/19/19 07:49 Labs: Abnormal Lab Results - Last 24 Hours (Table) 09/18/19 09/18/19 09/18/19 Range/Units 12:19 18:39 19:40 WBC (3.8-10.6) k/uL Hgb (13.0-17.5) gm/dL Neutrophils # (Manual) (1.3-7.7) k/uL Metamyelocytes # (Man) (0) k/uL Myelocytes # (Manual) (0) k/uL APTT 65.2 H (22.0-30.0) sec Potassium 3.4 L (3.5-5.1) mmol/L Glucose (74-99) mg/dL POC Glucose (mg/dL) 120 H (75-99) mg/dL Calcium (8.4-10.2) mg/dL 09/18/19 09/19/19 09/19/19 Range/Units 23:53 05:59 06:30 WBC 11.7 H (3.8-10.6) k/uL Hgb 12.9 L (13.0-17.5) gm/dL Neutrophils # (Manual) 8.60 H (1.3-7.7) k/uL Metamyelocytes # (Man) 0.12 H (0) k/uL Myelocytes # (Manual) 0.23 H (0) k/uL APTT (22.0-30.0) sec Potassium (3.5-5.1) mmol/L Glucose (74-99) mg/dL POC Glucose (mg/dL) 112 H 116 H (75-99) mg/dL Calcium (8.4-10.2) mg/dL 09/19/19 09/19/19 Range/Units 06:30 06:30 WBC (3.8-10.6) k/uL Hgb (13.0-17.5) gm/dL Neutrophils # (Manual) (1.3-7.7) k/uL Metamyelocytes # (Man) (0) k/uL Myelocytes # (Manual) (0) k/uL APTT 64.3 H (22.0-30.0) sec Potassium (3.5-5.1) mmol/L Glucose 100 H (74-99) mg/dL POC Glucose (mg/dL) (75-99) mg/dL Calcium 8.2 L (8.4-10.2) mg/dL Assessment and Plan Assessment: Acute small bowel obstruction status post laparotomy with lysis of adhesion with postoperative ileus Ileus Sinus tachycardia Leukocytosis Hypokalemia History of coronary artery disease status post stent placement was recently at [facility] April 2019 was maintained on dual antiplatelet therapy prior to surgery Hypertension Dyslipidemia PLAN Continue potassium replacement. Continue heparin infusion until patient is tolerating oral. Aspirin and Plavix to be resumed once he can tolerate. Time with Patient: Greater than 30
[2019-09-19] MEDS: OMEPRAZOLE 20 MG PO SCH (16:29)
[2019-09-19] MEDS ORDERED: PANTOPRAZOLE 40 MG TABLET PO SCH (17:30)
[2019-09-19] MEDS: ONDANSETRON 4 MG/2 ML VIAL IVP PRN (18:22)
[2019-09-19 18:32] LABS: Glucose,Whole Blood 105 mg/dL (75-99)
[2019-09-19] MEDS: MELATONIN 1 MG TAB PO SCH (20:36)
[2019-09-20 00:27] LABS: Glucose,Whole Blood 129 mg/dL (75-99)
[2019-09-20] MEDS: METOCLOPRAMIDE 5 MG/ML 2 ML VIAL IVP SCH ×3 (00:32→12:03)
[2019-09-20] MEDS: INSULIN ASPART (NovoLOG) 100 UNIT/ML VIAL SQ SCH ×3 (00:32→12:39)
[2019-09-20] MEDS: LACTATED RINGERS 1,000 ML IV SCH ×3 (00:54→11:20)
[2019-09-20] MEDS: LEVOTHYROXINE 50 MCG TAB PO SCH (05:57)
[2019-09-20 06:18] LABS: Glucose,Whole Blood 106 mg/dL (75-99)
[2019-09-20 07:39] LABS: African American GFR (CKD) >90 (>60 ml/min/1.73 sqM); Anion Gap 5 mmol/L; Blood Urea Nitrogen 18 mg/dL (9-20); Calcium 7.9 mg/dL (8.4-10.2); Carbon Dioxide 27 mmol/L (22-30); Chloride 105 mmol/L (98-107); Glucose 107 mg/dL (74-99); Magnesium 1.8 mg/dL (1.6-2.3); Non-African American GFR(CKD) >90 (>60 ml/min/1.73 sqM); Phosphorus 3.7 mg/dL (2.5-4.5); Potassium 3.7 mmol/L (3.5-5.1); Sodium 137 mmol/L (137-145)
[2019-09-20] MEDS: OMEPRAZOLE 20 MG PO SCH (07:42)
--- NOTE | 2019-09-20 07:49 | XR ---
EXAMINATION TYPE: XR abdomen 2V DATE OF EXAM: 09/20/2019 CLINICAL HISTORY: Abdominal pain and vomiting. TECHNIQUE: Supine and upright views of the abdomen are obtained. COMPARISON: Abdominal x-ray [address] 10 days ago.. FINDINGS: Nasogastric tube is stable in appearance. Air-fluid level in nondistended stomach. Scattere d gas in nondistended small and large bowel loops. Scattered air fluid levels is nonspecific. Gas is noted in nondistended rectum. Suspect tiny bilateral pleural effusions. Visualized osseous structures are intact. IMPRESSION: Overall nonspecific but favor nonobstructive bowel gas pattern currently.
[2019-09-20 07:51] VITALS: BP 137/84; PULSE 100; RESP 12; TEMP 98.6
[2019-09-20] MEDS: CLOPIDOGREL 75 MG TAB PO SCH (09:32)
[2019-09-20] MEDS: METOPROLOL SUCCINATE (ER) 25 MG TAB.ER.24H PO SCH (09:32)
[2019-09-20] MEDS: ASPIRIN 81 MG PO SCH (09:32)
[2019-09-20] MEDS: ATORVASTATIN 80 MG TAB PO SCH (09:32)
[2019-09-20] MEDS: LISINOPRIL 5 MG TAB PO SCH (09:32)
[2019-09-20] MEDS: POTASSIUM CHLORIDE 10 MEQ in WATER FOR INJECTION 1 100ML.BAG IVPB SCH ×2 (11:20→13:42)
--- NOTE | 2019-09-20 11:42 | P.CRDCN ---
History of Present Illness Consult date: 09/20/19 History of present illness: This is a 60-year-old gentleman with history of hypertension, osteoarthritis and also liver disease who has been in and out of the hospital with chest pains. The last time patient was in the hospital was in June of last year. He had a stress echocardiogram at the time which was negative for any inducible ischemia. Subsequently he was seen in the cardiology office and was evaluated by Dr. Nicholson. He had a 30 day event monitor and apparently was noted to have ventricular arrhythmias. There was a plan for possible EP evaluation and ablation. Patient now is admitted to the hospital with an episode of palpitation and sharp pains associated with some speech defect and also some difficulty with movements of the arm. His cardiac enzymes are negative. His EKGs are normal. His chest pains appear to be atypical. From cardiac st [facility], I'm not advocating any further workup at this time. I advised that patient could see if Dr. Nicholson now but he wants to see him on Friday as an outpatient. Patient could be discharged home from cardiac standpoint. Review of Systems As per the chart Past Medical History Past Medical History: Cancer, Myocardial Infarction (SD) Additional Past Medical History / Comment(s): hodgkins (chemo and radiation in ) Last Myocardial Infarction Date:: 2010 History of Any Multi-Drug Resistant Organisms: None Reported Past Surgical History: Heart Catheterization With Stent, Hernia Repair Additional Past Surgical History / Comment(s): broke back in Past Anesthesia/Blood Transfusion Reactions: No Reported Reaction Date of Last Stent Placement:: 04/28/19 Past Psychological History: No Psychological Hx Reported Smoking Status: Never smoker Past Alcohol Use History: Occasional Past Drug Use History: None Reported - Past Family History Mother Additional Family Medical History / Comment(s): dementia, mass in chest Father Additional Family Medical History / Comment(s): multiple myeloma Medications and Allergies Home Medications Medication Instructions Recorded Confirmed Type Aspirin EC [Ecotrin Low Dose] 162 mg PO DAILY 09/10/19 09/10/19 History Clopidogrel [Plavix] 75 mg PO DAILY 09/10/19 09/10/19 History Levothyroxine Sodium [Synthroid] 50 mcg PO DAILY 09/10/19 09/10/19 History Lisinopril [Zestril] 5 mg PO DAILY 09/10/19 09/10/19 History Magnesium Oxide [Mag-Ox] 250 mg PO DAILY 09/10/19 09/10/19 History Metoprolol Succinate [Toprol XL] 12.5 mg PO DAILY 09/10/19 09/10/19 History Omeprazole 20 mg PO DAILY 09/10/19 09/10/19 History Rosuvastatin Calcium [Crestor] 40 mg PO DAILY 09/10/19 09/10/19 History Ubidecarenone [Co Q-10] 200 mg PO DAILY 09/10/19 09/10/19 History Allergies Allergy/AdvReac Type Severity Reaction Status Date / Time No Known Allergies Allergy Verified 09/10/19 22:54 Physical Exam Vitals: Vital Signs Temp Pulse Resp BP Pulse Ox 09/20/19 07:50 98.6 F 100 12 137/84 97 09/20/19 00:13 99.1 F 99 17 121/74 94 L 09/19/19 23:49 16 09/19/19 20:09 18 09/19/19 19:05 99.9 F H 18 122/73 95 09/19/19 15:00 98.8 F 18 126/77 98 Intake and Output 09/19/19 09/20/19 09/20/19 22:59 06:59 14:59 Output Total 100 Balance -100 Output: Gastric Drainage 100 Other: Voiding Method Toilet Toilet Urinal Urinal # Voids 1 GENERAL EXAM: Patient is alert and oriented and doesn't appear to be in any acute distress HEENT: Normocephalic. Normal reaction of pupils, equal size, normal range of extraocular motion. No erythema or exudates in the throat. NECK: No masses, no nuchal rigidity. CHEST: No chest wall deformity. LUNGS: Equal air entry with no crackles or wheeze. HEART: S1 and S2 normal with no audible mumurs or gallops. Regular rhythm, femorals equal on both sides.. ABDOMEN: No hepatosplenomegaly, normal bowel sounds, no guarding or rigidity. SKIN: No rashes CENTRAL NERVOUS SYSTEM: No focal deficits. EXTREMITIES: No cyanosis, clubbing or edema. Results 09/19/19 06:30 09/20/19 07:07 Comprehensive Metabolic Panel 09/20/19 Range/Units 07:07 Sodium 137 (137-145) mmol/L Potassium 3.7 (3.5-5.1) mmol/L Chloride 105 (98-107) mmol/L Carbon Dioxide 27 (22-30) mmol/L BUN 18 (9-20) mg/dL Creatinine 0.81 (0.66-1.25) mg/dL Glucose 107 H (74-99) mg/dL Calcium 7.9 L (8.4-10.2) mg/dL Current Medications Generic Name Dose Route Start Last Admin Trade Name Freq PRN Reason Stop Dose Admin Aspirin 81 mg 09/14/19 10:15 09/20/19 09:32 Aspirin PO 81 mg DAILY [facility] Administration Atorvastatin Calcium 80 mg 09/14/19 16:30 09/20/19 09:32 Lipitor PO 80 mg DAILY [facility] Administration Benzocaine 1 spray 09/12/19 10:44 09/18/19 23:57 Hurricaine Goodell MUCOUS MEM 1 spray QID PRN Administration Mouth Irritation Clopidogrel Bisulfate 75 mg 09/14/19 10:15 09/20/19 09:32 Plavix PO 75 mg DAILY [facility] Administration Diazepam 2 mg 09/15/19 20:43 09/15/19 23:03 Valium PO 2 mg HS PRN Administration Insomnia Hydromorphone HCl 1 mg 09/10/19 22:19 09/17/19 00:43 Dilaudid IVP 1 mg Q3HR PRN Administration Severe Pain Hydromorphone HCl 0.5 mg 09/11/19 10:58 09/18/19 19:33 Dilaudid IVP 0.5 mg Q3HR PRN Administration Breakthrough Pain Lactated Ringer's 1,000 mls @ 150 mls/hr 09/16/19 00:45 09/20/19 11:20 Lactated Ringers IV 150 mls/hr .Q6H40M [facility] Administration Fat Emulsion Intravenous 250 mls @ 20.833 mls/hr 09/17/19 14:00 09/19/19 14:23 Lipids 20% IV 20.833 mls/hr DAILY@1400 [facility] Administration Parenteral Vitamin Supplement 1,052.3333 mls @ 90 mls/hr 09/18/19 14:00 09/19/19 14:15 10 ml/ Chromium/Copper/ IV 90 mls/hr Manganese/Seleni/Zn 1 ml/ .BY DURATION [facility] Administration Sodium Acetate 16 meq/ Potassium Chloride 40 meq/ Calcium Gluconate 1 gm/ Sodium Phosphate 10 mmol/ Amino Acids/Dextrose Sodium Acetate 16 meq/ 1,041.3333 mls @ 90 mls/hr 09/18/19 14:00 09/20/19 00:55 Potassium Chloride 40 meq/ IV 90 mls/hr Calcium Gluconate 1 gm/ Sodium .BY DURATION [facility] Administration Phosphate 10 mmol/ Amino Acids/Dextrose Potassium Chloride 10 meq/ IV 100 mls @ 100 mls/hr 09/20/19 11:30 09/20/19 11:20 Solution IVPB 09/20/19 13:29 100 mls/hr Q1H [facility] Administration Protocol Insulin Aspart 0 unit 09/18/19 12:00 09/20/19 06:20 Novolog SQ Not Given 0600,1200,1800,0000 [facility] Protocol Levothyroxine Sodium 50 mcg 09/13/19 06:30 09/20/19 05:57 Synthroid PO Not Given DAILY@0630 [facility] Lisinopril 5 mg 09/14/19 16:30 09/20/19 09:32 Zestril PO 5 mg DAILY [facility] Administration Melatonin 2 mg 09/12/19 21:00 09/19/19 20:36 Melatonin PO Not Given HS [facility] Metoclopramide HCl 10 mg 09/12/19 12:00 09/20/19 05:57 Reglan IVP Not Given Q6HR [facility] Metoprolol Succinate 12.5 mg 09/14/19 16:30 09/20/19 09:32 Toprol Xl PO 12.5 mg DAILY [facility] Administration Miscellaneous Information 1 each 09/16/19 09:58 Potassium Per Protocol MISCELLANE DAILY PRN Per Protocol Protocol Miscellaneous Information 1 each 09/18/19 23:21 Potassium Per Protocol MISCELLANE DAILY PRN Per Protocol Protocol Naloxone HCl 0.2 mg 09/10/19 22:19 Narcan IV Q2M PRN Opioid Reversal Patient's Own Med-- 1 each 09/19/19 15:24 09/20/19 07:42 Omeprazole 20mg Cap PO 1 each [id number] [facility] Administration Ondansetron HCl 4 mg 09/11/19 10:59 09/19/19 18:22 Zofran IVP 4 mg Q4HR PRN Administration Nausea And Vomiting Intake and Output 09/19/19 09/20/19 09/20/19 22:59 06:59 14:59 Output Total 100 Balance -100 Output: Gastric Drainage 100 Other: Voiding Method Toilet Toilet Urinal Urinal # Voids 1 09/19/19 06:30 09/20/19 07:07 EKG Interpretations (text) Sinus rhythm Assessment and Plan (1) Atypical chest pain Current Visit: Yes Status: Acute Code(s): R07.89 - OTHER CHEST PAIN SNOMED Code(s): 872332707 (2) Cardiac arrhythmia Current Visit: Yes Status: Acute Code(s): I49.9 - CARDIAC ARRHYTHMIA, UNSPECIFIED SNOMED Code(s): 038159752 Plan: From cardiac standpoint, patient could be discharged home. Follow-up with Dr. Nicholson on Friday
--- NOTE | 2019-09-20 11:51 | P.PN ---
Subjective Progress Note Date: 09/20/19 CHIEF COMPLAINT: Abdominal pain HISTORY OF PRESENT ILLNESS: 59-year-old male who is status post exploratory laparotomy with lysis of adhesions. Patient developed postoperative ileus with nausea and vomiting. NG tube remains in place. Has been clamped for over 24 hours. patient tolerating clear liquid diet. No nausea or vomiting. He is having bowel movements. He is nervous to have the NG tube removed because of the difficulty with insertion last week. PHYSICAL EXAM: VITAL SIGNS: Reviewed. GENERAL: Well-developed in no acute distress. HEENT: No sclera icterus. Extraocular movements grossly intact. Moist buccal mucosa. Head is atraumatic, normocephalic. ABDOMEN: NG intact. Currently clamped. Abdomen soft. Mildly distended. No ntender. NEUROLOGIC: Alert and oriented. Cranial nerves II through XII grossly intact. ASSESSMENT: 1. Small bowel obstruction, status post exploratory laparotomy with lysis of adhesions 2. Postoperative ileus PLAN: Advance diet If patient tolerates, will DC NG tube this afternoon Continue PPN. Wean off when oral intake increases. Continue Reglan Activity as tolerated Nurse practitioner note has been reviewed by physician. Signing provider agrees with the documented findings, assessment, and plan of care. Objective - Vital Signs Vital signs: Vital Signs Temp 98.6 F 09/20/19 07:50 Pulse 100 09/20/19 07:50 Resp 12 09/20/19 07:50 BP 137/84 09/20/19 07:50 Pulse Ox 97 09/20/19 07:50 Intake & Output 09/19/19 09/20/19 09/20/19 18:59 06:59 18:59 Intake Total 3071.3333 Output Total 100 Balance 2971.3333 Intake: IV 1050 Lactated Ringers 1,000 ml 1050 @ 150 mls/hr IV .Q6H40M [facility] Rx#:[id number] Intake, IV Titration Amount Heparin Sod,Pork in 0.45% 250.000 NaCl 25,000 unit In 0.45 % NaCl 1 250ml.bag @ 9. 585 UNITS/KG/HR 10 mls/hr IV .Q24H [facility] Rx#: [id number] Mvi, Adult No.4 with Vit 630 K 10 ml Trace (Conc-1Ml/ Dose) 1 ml Sodium Acetate 16 meq Potassium Chloride 40 meq Calcium Gluconate 1 gm Sodium Phosphate 10 mmol In Amino Acid 5%-D15w 1,000 ml @ 90 mls/hr IV .BY DURATION [facility] Rx#: [id number] Potassium Chloride 20 meq 100 In Water For Injection 1 100ml.bag @ 50 mls/hr IVPB ONCE ONE Rx#: [id number] Sodium Acetate 16 meq 1041.3333 Potassium Chloride 40 meq Calcium Gluconate 1 gm Sodium Phosphate 10 mmol In Amino Acid 5%-D15w 1, 000 ml @ 90 mls/hr IV .BY DURATION [facility] Rx#: [id number] Output: Gastric Drainage 100 Other: Voiding Method Toilet Toilet Urinal Urinal # Voids 3 1 # Bowel Movements 1 - Labs CBC & Chem 7: 09/19/19 06:30 09/20/19 07:07 Labs: Abnormal Lab Results - Last 24 Hours (Table) 09/19/19 09/19/19 09/20/19 Range/Units 11:50 18:20 00:15 Glucose (74-99) mg/dL POC Glucose (mg/dL) 110 H 105 H 129 H (75-99) mg/dL Calcium (8.4-10.2) mg/dL 09/20/19 09/20/19 Range/Units 06:06 07:07 Glucose 107 H (74-99) mg/dL POC Glucose (mg/dL) 106 H (75-99) mg/dL Calcium 7.9 L (8.4-10.2) mg/dL
[2019-09-20 12:14] LABS: Glucose,Whole Blood 93 mg/dL (75-99)
--- NOTE | 2019-09-21 06:42 | DS ---
DISCHARGE SUMMARY FINAL DIAGNOSES: 1. Acute small-bowel obstruction, status post laparotomy with lysis of adhesions with postoperative ileus, improved. 2. Sinus tachycardia. 3. Leukocytosis. 4. Hypokalemia. 5. History of coronary artery disease, stent placement recently at [facility]. 6. Maintained on dual antiplatelet treatment prior to surgery. 7. Hypertension. 8. Dyslipidemia. DISCHARGE DISPOSITION: The patient will be discharged in stable condition with guarded prognosis. Total time taken 35 minutes. HISTORY OF PRESENT ILLNESS: This 59-year-old gentleman with a past medical history of multiple medical problems was admitted with features of acute small-bowel obstruction. Patient had laparotomy and lysis of adhesions. Subsequently, patient had ileus. Patient had NG tube insertion, but however the patient improved significantly and antiplatelet drugs were continued as mentioned earlier, and the patient is being discharged in a stable condition with guarded prognosis by Surgery at this time. Otherwise, lab gonsalves the lytes were within normal limits. WBC 11.7, hemoglobin 12.9 The following advise and medications were recommended at the time of 1. Diet per Surgery. 2. Activity limited until followup. 3. Follow up with Dr. Hanson in 2 to 3 days. 4. Follow up with Surgery as recommended. 5. Follow up with Cardiology as recommended. Medications are: 1. Co-enzyme Q 200 mg p.o. daily. 2. Crestor 40 mg p.o. daily. 3. Aspirin 162 mg p.o. daily. 4. Magnesium oxide 250 mg p.o. daily. 5. Omeprazole 20 mg p.o. daily. 6. Plavix 75 mg p.o. daily. 7. Synthroid 50 mcg p.o. daily. 8. Toprol-XL 12.5 mg daily. 9. Zestril 5 mg p.o. daily. 10.Hydrocodone per Surgery. Once again, the patient will be discharged in a stable condition with guarded prognosis. MMODL / IJN: [id number] / MTDD
== END 2019-09-20 16:51 | disposition home or self-care (01) | DRG 335 ==
LOC: EC 19:12 → 4SSUR 21:53
PROVIDERS: ADMIT Hospitalist; ATTEND Hospitalist
PROC: 0DN80ZZ Release Small Intestine, Open Approach (ICD-10-PCS; principal; 2019-09-12 07:30)
PROC: 02HV33Z Insertion of Infusion Device into Superior Vena Cava, Percutaneous Approach (ICD-10-PCS; 2019-09-17)
PROC: 3E0336Z Introduction of Nutritional Substance into Peripheral Vein, Percutaneous Approach (ICD-10-PCS; 2019-09-19)
DX: K56.50 Intestinal adhesions [bands], unspecified as to partial versus complete obstruction (principal); K29.71 Gastritis, unspecified, with bleeding; Z68.32 Body mass index [BMI] 32.0-32.9, adult; D72.829 Elevated white blood cell count, unspecified; E03.9 Hypothyroidism, unspecified; E63.9 Nutritional deficiency, unspecified; E66.9 Obesity, unspecified; E78.5 Hyperlipidemia, unspecified; E87.6 Hypokalemia; I10 Essential (primary) hypertension; I25.10 Atherosclerotic heart disease of native coronary artery without angina pectoris; I25.2 Old myocardial infarction; K56.7 Ileus, unspecified; Z79.02 Long term (current) use of antithrombotics/antiplatelets; Z79.2 Long term (current) use of antibiotics; Z79.82 Long term (current) use of aspirin; Z79.890 Hormone replacement therapy; Z79.899 Other long term (current) drug therapy; Z80.7 Family history of other malignant neoplasms of lymphoid, hematopoietic and related tissues; Z85.71 Personal history of Hodgkin lymphoma; Z95.5 Presence of coronary angioplasty implant and graft; Z92.21 Personal history of antineoplastic chemotherapy; Z92.3 Personal history of irradiation; Z82.0 Family history of epilepsy and other diseases of the nervous system; R07.89 Other chest pain; I49.9 Cardiac arrhythmia, unspecified; K76.9 Liver disease, unspecified; M19.90 Unspecified osteoarthritis, unspecified site
CPT/HCPCS: 36415; 36573; 71275; 74019; 74177; 80048; 80053; 81001; 82150; 82330; 83605; 83690; 83735; 84100; 84132; 84443; 84478; 84484; 85025; 85027; 85610; 85730; 93005; 94760; 96361; 96374; 96375; 99285

== ENCOUNTER → 2020-11-06 | Outpatient (CLI) | payer BC | END | disposition home or self-care (01) | LOC: LABWHC1 07:34 | PROVIDERS: ATTEND Internal Medicine | DX: Z20.822 Contact with and (suspected) exposure to COVID-19 (principal) | CPT/HCPCS: U0003; U0005 ==